=== PATIENT | female | born 1940 | race Caucasian/White ===

== ENCOUNTER 2020-09-18 10:36 | Outpatient (REF) | payer MEDICARE, SELFPAY ==
[2020-09-18 10:40] LABS: MANUAL DIFF FLAG NO
[2020-09-18 10:45] LABS: Basophils Absolute Auto 0.1 X10*3/uL (0.0-0.2); Basophils Percent Auto 0.8 % (0-2); Eosinophils Absolute Auto 0.3 X10*3/uL (0.0-0.4); Eosinophils Percent Auto 4.3 % (0-4); Hematocrit 40.5 % (37-47); Hemoglobin 13.1 g/dl (12.0-16.0); Imm Gran Abs Auto 0.03 X10*3/uL (0.00-0.03); Imm Gran Pct Auto 0.4 % (0.0-0.4); Lymphocytes Absolute Auto 3.1 X10*3/uL (1.2-4.9); Lymphocytes Percent Auto 40.8 % (20-40); Mean Corpuscular HGB Conc 32.3 g/dl (31.0-35.0); Mean Corpuscular Hemoglobin 30.8 pg (27.0-33.0); Mean Corpuscular Volume 95.3 fL (80-98); Mean Platelet Volume 11.4 fL (9.4-12.3); Monocytes Absolute Auto 0.7 X10*3/uL (0.1-1.2); Monocytes Percent Auto 9.8 % (2-11); Neutrophils Absolute Auto 3.3 X10*3/uL (2.0-8.3); Neutrophils Percent Auto 43.9 % (45-73); Platelet Count 206 X10*3/uL (160-400); Red Blood Count 4.25 X10*6/uL (4.20-5.50); Red Cell Distribution Width 11.9 % (11.0-16.0); White Blood Count 7.5 X10*3/uL (4.8-10.8)
[2020-09-18 10:51] LABS: Glucose Urine UA NEG (NEG); Leukocyte Esterase Urine TRACE (NEG); Nitrite Urine NEG (NEG); Specific Gravity - Urine 1.015 (1.005-1.025); Urine Blood TRACE (NEG); Urine Ketones NEG (NEG); Urine Protein NEG (NEG-TRACE)
[2020-09-18 10:54] LABS: Appearance Urine CLEAR; Color Urine YELLOW
[2020-09-18 11:23] LABS: Bacteria Urine TRACE /LPF; RBC Urine 0 /HPF (0); Squamous Epithelial Cell Urine 1+ /LPF
[2020-09-18 12:20] LABS: Alanine Aminotransferase 8 U/L (0-31); Alkaline Phosphatase 74 U/L (39-117); Anion Gap 15 (12-20); Aspartate Amino Transferase 19 U/L (5-31); Bilirubin Total 0.2 mg/dL (0.0-1.0); Blood Urea Nitrogen 41 mg/dL (9-16); Carbon Dioxide 22 mmol/L (22-29); Chloride 106 mmol/L (96-108); Cholesterol 246 mg/dL; Estimated Glomerular Filt Rate 35; Glucose Fasting 89 mg/dL (60-99); HDL Cholesterol 53 mg/dL; LDL Cholesterol Calculated 158 mg/dl; Potassium 4.8 mmol/L (3.3-5.1); Sodium 138 mmol/L (135-145); Total Protein 6.9 g/dL (6.5-8.0); Triglycerides 176 mg/dL
== END 2020-09-18 10:37 | disposition home or self-care (01) ==
LOC: HO.LNP 10:36
PROVIDERS: Visit Provider Internal Medicine
DX: Z00.00 Encounter for general adult medical examination without abnormal findings (principal); R79.9 Abnormal finding of blood chemistry, unspecified; R79.89 Other specified abnormal findings of blood chemistry; I10 Essential (primary) hypertension
CPT/HCPCS: 80053; 80061; 81001; 85025

== ENCOUNTER 2020-10-23 10:12 | Outpatient (REF) | payer MEDICARE, SELFPAY ==
[2020-10-23 10:50] LABS: Blood Urea Nitrogen 27 mg/dL (9-16); Estimated Glomerular Filt Rate 37
== END 2020-10-23 10:13 | disposition home or self-care (01) ==
LOC: HO.LNP 10:12
PROVIDERS: Visit Provider Internal Medicine
DX: R79.9 Abnormal finding of blood chemistry, unspecified (principal)
CPT/HCPCS: 82565; 84520

== ENCOUNTER 2021-02-25 10:25 | Outpatient (REF) | payer MEDICARE, SELFPAY ==
[2021-02-25 11:29] LABS: Blood Urea Nitrogen 33 mg/dL (9-16); Estimated Glomerular Filt Rate 34
== END 2021-02-25 10:26 | disposition home or self-care (01) ==
LOC: HO.LNP 10:25
PROVIDERS: Visit Provider Internal Medicine
DX: R79.89 Other specified abnormal findings of blood chemistry (principal)
CPT/HCPCS: 82565; 84520

== ENCOUNTER 2021-06-15 10:46 | Outpatient (REF) | payer MEDICARE, SELFPAY ==
[2021-06-15 11:18] LABS: Blood Urea Nitrogen 26 mg/dL (9-16); Estimated Glomerular Filt Rate 44
== END 2021-06-15 10:47 | disposition home or self-care (01) ==
LOC: HO.LNP 10:46
PROVIDERS: Visit Provider Internal Medicine
DX: R79.9 Abnormal finding of blood chemistry, unspecified (principal)
CPT/HCPCS: 82565; 84520

== ENCOUNTER 2021-09-24 11:08 | Outpatient (REF) | payer MEDICARE, SELFPAY ==
[2021-09-24 11:10] LABS: MANUAL DIFF FLAG NO
[2021-09-24 11:30] LABS: Basophils Absolute Auto 0.1 X10*3/uL (0.0-0.2); Basophils Percent Auto 0.7 % (0-2); Eosinophils Absolute Auto 0.2 X10*3/uL (0.0-0.4); Eosinophils Percent Auto 2.4 % (0-4); Hematocrit 37.7 % (37.0-47.0); Hemoglobin 12.3 g/dl (12.0-16.0); Imm Gran Abs Auto 0.02 X10*3/uL (0.00-0.03); Imm Gran Pct Auto 0.3 % (0.0-0.4); Lymphocytes Percent Auto 40.8 % (20-40); Mean Corpuscular HGB Conc 32.6 g/dl (31.0-35.0); Mean Corpuscular Hemoglobin 30.9 pg (27.0-33.0); Mean Corpuscular Volume 94.7 fL (80.0-98.0); Mean Platelet Volume 11.6 fL (9.4-12.3); Monocytes Absolute Auto 0.7 X10*3/uL (0.1-1.2); Monocytes Percent Auto 9.4 % (2-11); Neutrophils Absolute Auto 3.5 x10*3/uL (2.0-8.3); Neutrophils Percent Auto 46.4 % (45-73); Platelet Count 204 X10*3/uL (160-400); Red Blood Count 3.98 X10*6/uL (4.20-5.50); Red Cell Distribution Width 12.5 % (11.0-16.0); White Blood Count 7.5 X10*3/uL (4.8-10.8)
[2021-09-24 11:32] LABS: Appearance Urine CLEAR; Color Urine YELLOW; Glucose Urine UA NEG (NEG); Leukocyte Esterase Urine NEG (NEG); Nitrite Urine NEG (NEG); Urine Blood TRACE (NEG); Urine Ketones NEG (NEG); Urine Protein NEG (NEG-TRACE)
[2021-09-24 11:55] LABS: Bacteria Urine TRACE /LPF; Mucus Urine TRACE /LPF; Squamous Epithelial Cell Urine 2+ /LPF
[2021-09-24 11:58] LABS: Alanine Aminotransferase 12 U/L (0-31); Alkaline Phosphatase 56 U/L (39-117); Anion Gap 13 (12-20); Aspartate Amino Transferase 19 U/L (5-31); Bilirubin Total 0.4 mg/dL (0.0-1.0); Blood Urea Nitrogen 25 mg/dL (9-16); Calcium 9.3 mg/dL (8.4-10.2); Carbon Dioxide 23 mmol/L (22-29); Chloride 106 mmol/L (96-108); Cholesterol 247 mg/dL; Estimated Glomerular Filt Rate 40; Glucose Fasting 89 mg/dL (60-99); HDL Cholesterol 56 mg/dL; LDL Cholesterol Calculated 165 mg/dl; Potassium 4.4 mmol/L (3.3-5.1); Sodium 138 mmol/L (135-145); Total Protein 6.8 g/dL (6.5-8.0); Triglycerides 133 mg/dL
== END 2021-09-24 11:09 | disposition home or self-care (01) ==
LOC: HO.LNP 11:08
PROVIDERS: Visit Provider Internal Medicine
DX: Z00.00 Encounter for general adult medical examination without abnormal findings (principal)
CPT/HCPCS: 80053; 80061; 81001; 85025

== ENCOUNTER 2021-12-20 11:22 | Outpatient (REF) | payer MEDICARE, SELFPAY ==
[2021-12-20 11:44] LABS: Blood Urea Nitrogen 26 mg/dL (9-16); Estimated Glomerular Filt Rate 40
== END 2021-12-20 11:23 | disposition home or self-care (01) ==
LOC: HO.LNP 11:22
PROVIDERS: Visit Provider Internal Medicine
DX: R79.9 Abnormal finding of blood chemistry, unspecified (principal)
CPT/HCPCS: 82565; 84520

== ENCOUNTER 2022-11-14 10:41 | Outpatient (REF) | payer MEDICARE, SELFPAY ==
[2022-11-14 11:01] LABS: Appearance Urine Clear; Color Urine Yellow; Glucose Urine UA Negative (Negative); Leukocyte Esterase Urine Negative (Negative); Nitrite Urine Negative (Negative); PH 5.5 (5.0-9.0); Specific Gravity - Urine 1.015 (1.005-1.025); Urine Blood Negative (Negative); Urine Ketones Negative (Negative); Urine Protein Negative (Neg-Trace)
[2022-11-14 11:06] LABS: Bacteria Urine None Seen (None Seen); Hyaline Casts Urine 0-2 /LPF (0-2); RBC Urine 0-2 /HPF (0-2); Squamous Epithelial Cell Urine 0-2 /HPF (0-2); WBC Urine 0-5 /HPF (0-5)
[2022-11-14 11:15] LABS: Alanine Aminotransferase 19 U/L (0-31); Albumin Level 3.9 g/dL (3.5-5.0); Alkaline Phosphatase 58 U/L (39-117); Anion Gap 17 (12-20); Aspartate Amino Transferase 17 U/L (5-31); Bilirubin Total 0.4 mg/dL (0.0-1.0); Blood Urea Nitrogen 51 mg/dL (9-16); Calcium 9.3 mg/dL (8.4-10.2); Carbon Dioxide 21 mmol/L (22-29); Chloride 104 mmol/L (96-108); Cholesterol 230 mg/dL; Estimated Glomerular Filt Rate 37; Glucose Fasting 83 mg/dL (60-99); HDL Cholesterol 60 mg/dL; LDL Cholesterol Calculated 138 mg/dl; Potassium 4.9 mmol/L (3.3-5.1); Sodium 137 mmol/L (135-145); Total Protein 6.8 g/dL (6.5-8.0); Triglycerides 160 mg/dL
[2022-11-14 14:42] LABS: Basophils Absolute Auto 0.1 X10*3/uL (0.0-0.2); Basophils Percent Auto 0.3 % (0-2); Eosinophils Absolute Auto 0.2 X10*3/uL (0.0-0.4); Imm Gran Abs Auto 0.43 X10*3/uL (0.00-0.03); Imm Gran Pct Auto 2.6 % (0.0-0.4); Lymphocytes Absolute Auto 3.2 X10*3/uL (1.2-4.9); Lymphocytes Percent Auto 19.4 % (20-40); MANUAL DIFF FLAG SCAN; Mean Corpuscular HGB Conc 32.5 g/dl (31.0-35.0); Mean Corpuscular Volume 95.5 fL (80.0-98.0); Mean Platelet Volume 10.6 fL (9.4-12.3); Monocytes Absolute Auto 1.6 X10*3/uL (0.1-1.2); Neutrophils Absolute Auto 10.9 x10*3/uL (2.0-8.3); Neutrophils Percent Auto 66.7 % (45-73); Platelet Count 242 X10*3/uL (160-400); Red Blood Count 4.19 X10*6/uL (4.20-5.50); Red Cell Distribution Width 12.8 % (11.0-16.0); SCAN SMEAR FLAG 1; White Blood Count 16.4 X10*3/uL (4.8-10.8)
[2022-11-14 20:24] LABS: SLIDE REVIEW VERIFIED
== END 2022-11-14 10:42 | disposition home or self-care (01) ==
LOC: HO.LNP 10:41
PROVIDERS: Visit Provider Internal Medicine
DX: Z00.00 Encounter for general adult medical examination without abnormal findings (principal); I10 Essential (primary) hypertension; R79.9 Abnormal finding of blood chemistry, unspecified
CPT/HCPCS: 80053; 80061; 81001; 85025

== ENCOUNTER 2022-11-18 16:59 | Outpatient (REF) | payer MEDICARE, SELFPAY ==
--- NOTE | ~2022-11-18 | MR_ITS ---
MR LUMBAR SPINE WITHOUT CONTRAST CLINICAL INFORMATION: Right-sided sciatica. COMPARISON: None available. TECHNIQUE: MRI of the lumbar spine was obtained using routine sequences without contrast. FINDINGS: There are 5 nonrib-bearing lumbar-type vertebral bodies. Leftward convex lumbar scoliosis. There is grade 1 retrolisthesis of L1 on L2 and L2 on L3. There is grade 1 anterolisthesis of L4 on L5 and L5 on S1. Small intraosseous hemangiomas within the T11, L1, and L2 vertebral bodies. There are no acute fractures. The vertebral body heights are maintained. Conus terminates at the L1-L2 level. There are no significant extraspinal soft tissue findings. L1-L2: There is grade 1 retrolisthesis. Right paracentral/right lateral disc osteophyte protrusion results in mass effect on the traversing right L2 nerve root within the right subarticular zone and moderate right-sided foraminal stenosis. No central canal stenosis. Mild left foraminal encroachment. L2-L3: Grade 1 retrolisthesis. Right paracentral/right lateral disc osteophyte protrusion compresses the traversing right L3 nerve root within the right subarticular zone and along with advanced facet arthropathy result in moderate to severe right-sided foraminal stenosis with mass effect on the exiting right L2 nerve root. L3-L4: There is a diffuse annular disc bulge that is in part disc osteophyte with a superimposed right lateral disc osteophyte protrusion that along with advanced facet arthropathy result in severe right-sided foraminal stenosis with compression of the exiting right L3 nerve root. L4-L5: There is grade 1 degenerative anterolisthesis. Severe bilateral facet arthropathy and ligamentum flavum thickening. There is no central canal stenosis. Right lateral disc osteophyte and facet arthropathy result in moderate to severe right foraminal stenosis with compression of the exiting right L4 nerve root. Mild left foraminal encroachment. L5-S1: Grade 1 degenerative anterolisthesis. Severe bilateral hypertrophic facet arthropathy and ligamentum flavum thickening. Findings in concert result in mild narrowing of the central canal and mild bilateral foraminal encroachment. MR/MR lumbar spine wo con IMPRESSION: - Leftward convex lumbar scoliosis superimposed on multilevel degenerative disc disease and hypertrophic facet arthropathy: - At L1-L2, a right paracentral/right lateral disc osteophyte protrusion results in mass effect on the traversing right L2 nerve root within the right subarticular zone and moderate right-sided foraminal stenosis. - At L2-L3, a right paracentral/right lateral disc osteophyte protrusion compresses the traversing right L3 nerve root within the right subarticular zone and along with advanced facet arthropathy result in moderate to severe right-sided foraminal stenosis with mass effect on the exiting right L2 nerve root. - At L3-L4, a right lateral disc osteophyte protrusion along with advanced facet arthropathy result in severe right-sided foraminal stenosis with compression of the exiting right L3 nerve root. - At L4-L5, there is grade 1 degenerative anterolisthesis in the setting of advanced bilateral hypertrophic facet arthropathy contributing to moderate to severe right-sided foraminal stenosis with compression of the exiting right L4 nerve root. - At L5-S1, there is grade 1 degenerative anterolisthesis in the setting of advanced bilateral hypertrophic facet arthropathy.
== END 2022-11-18 17:00 | disposition home or self-care (01) ==
LOC: HO.MRI 16:59
PROVIDERS: PCP Internal Medicine; Visit Provider Internal Medicine
DX: M54.31 Sciatica, right side (principal)
CPT/HCPCS: 72148

== ENCOUNTER 2022-11-21 15:29 | Outpatient (REF) | payer MEDICARE, SELFPAY ==
[2022-11-21 15:32] LABS: MANUAL DIFF FLAG NO
[2022-11-21 15:36] LABS: Basophils Percent Auto 0.4 % (0-2); Eosinophils Absolute Auto 0.1 X10*3/uL (0.0-0.4); Eosinophils Percent Auto 0.7 % (0-4); Hematocrit 34.2 % (37.0-47.0); Hemoglobin 11.4 g/dl (12.0-16.0); Imm Gran Abs Auto 0.03 X10*3/uL (0.00-0.03); Imm Gran Pct Auto 0.4 % (0.0-0.4); Lymphocytes Absolute Auto 2.1 X10*3/uL (1.2-4.9); Lymphocytes Percent Auto 24.6 % (20-40); Mean Corpuscular HGB Conc 33.3 g/dl (31.0-35.0); Mean Corpuscular Hemoglobin 31.1 pg (27.0-33.0); Mean Corpuscular Volume 93.4 fL (80.0-98.0); Mean Platelet Volume 10.7 fL (9.4-12.3); Monocytes Absolute Auto 0.7 X10*3/uL (0.1-1.2); Monocytes Percent Auto 8.2 % (2-11); Neutrophils Absolute Auto 5.6 x10*3/uL (2.0-8.3); Neutrophils Percent Auto 65.7 % (45-73); Platelet Count 234 X10*3/uL (160-400); Red Blood Count 3.66 X10*6/uL (4.20-5.50); Red Cell Distribution Width 12.7 % (11.0-16.0); White Blood Count 8.5 X10*3/uL (4.8-10.8)
== END 2022-11-21 15:30 | disposition home or self-care (01) ==
LOC: HO.LNP 15:29
PROVIDERS: Visit Provider Internal Medicine
DX: R79.9 Abnormal finding of blood chemistry, unspecified (principal)
CPT/HCPCS: 85025

== ENCOUNTER 2022-12-15 11:59 | Outpatient (REF) | payer MEDICARE, SELFPAY ==
[2022-12-15 12:03] LABS: MANUAL DIFF FLAG NO
[2022-12-15 12:37] LABS: Basophils Absolute Auto 0.1 X10*3/uL (0.0-0.2); Basophils Percent Auto 0.8 % (0-2); Eosinophils Absolute Auto 0.1 X10*3/uL (0.0-0.4); Eosinophils Percent Auto 1.8 % (0-4); Hematocrit 37.1 % (37.0-47.0); Imm Gran Abs Auto 0.04 X10*3/uL (0.00-0.03); Imm Gran Pct Auto 0.5 % (0.0-0.4); Lymphocytes Absolute Auto 2.5 X10*3/uL (1.2-4.9); Lymphocytes Percent Auto 31.6 % (20-40); Mean Corpuscular HGB Conc 32.3 g/dl (31.0-35.0); Mean Corpuscular Hemoglobin 31.6 pg (27.0-33.0); Mean Corpuscular Volume 97.6 fL (80.0-98.0); Mean Platelet Volume 11.6 fL (9.4-12.3); Monocytes Percent Auto 12.5 % (2-11); Neutrophils Absolute Auto 4.2 x10*3/uL (2.0-8.3); Neutrophils Percent Auto 52.8 % (45-73); Platelet Count 208 X10*3/uL (160-400); Red Cell Distribution Width 13.8 % (11.0-16.0)
[2022-12-15 12:38] LABS: Blood Urea Nitrogen 19 mg/dL (9-16); Estimated Glomerular Filt Rate 53
== END 2022-12-15 12:00 | disposition home or self-care (01) ==
LOC: HO.LNP 11:59
PROVIDERS: Visit Provider Internal Medicine
DX: R79.9 Abnormal finding of blood chemistry, unspecified (principal); D72.829 Elevated white blood cell count, unspecified
CPT/HCPCS: 82565; 84520; 85025

== ENCOUNTER 2023-06-30 12:04 | Outpatient (REF) | payer MEDICARE, SELFPAY ==
[2023-06-30 13:02] LABS: Blood Urea Nitrogen 33 mg/dL (9-16); Estimated Glomerular Filt Rate 42
== END 2023-06-30 12:05 | disposition home or self-care (01) ==
LOC: HO.LNP 12:04
PROVIDERS: Visit Provider Internal Medicine
DX: I10 Essential (primary) hypertension (principal)
CPT/HCPCS: 82565; 84520

== ENCOUNTER 2023-08-11 11:23 | Outpatient (REF) | payer MEDICARE, SELFPAY ==
[2023-08-11 13:02] LABS: Blood Urea Nitrogen 19 mg/dL (9-16); Estimated Glomerular Filt Rate 53
== END 2023-08-11 11:24 | disposition home or self-care (01) ==
LOC: HO.LNP 11:23
PROVIDERS: Visit Provider Internal Medicine
DX: R79.9 Abnormal finding of blood chemistry, unspecified (principal)
CPT/HCPCS: 82565; 84520

== ENCOUNTER 2023-11-16 10:52 | Outpatient (REF) | payer MEDICARE, SELFPAY ==
[2023-11-16 10:56] LABS: MANUAL DIFF FLAG NO
[2023-11-16 11:17] LABS: Appearance Urine Clear; Color Urine Yellow; Glucose Urine UA Negative (Negative); Leukocyte Esterase Urine Negative (Negative); Nitrite Urine Negative (Negative); Urine Blood Negative (Negative); Urine Ketones Negative (Negative); Urine Protein Negative (Neg-Trace)
[2023-11-16 11:20] LABS: Basophils Absolute Auto 0.1 X10*3/uL (0.0-0.2); Eosinophils Absolute Auto 0.2 X10*3/uL (0.0-0.4); Eosinophils Percent Auto 3.1 % (0-4); Hematocrit 42.5 % (37.0-47.0); Hemoglobin 14.1 g/dl (12.0-16.0); Imm Gran Abs Auto 0.03 X10*3/uL (0.00-0.03); Imm Gran Pct Auto 0.5 % (0.0-0.4); Lymphocytes Percent Auto 32.1 % (20-40); Mean Corpuscular HGB Conc 33.2 g/dl (31.0-35.0); Mean Corpuscular Hemoglobin 31.3 pg (27.0-33.0); Mean Corpuscular Volume 94.4 fL (80.0-98.0); Mean Platelet Volume 10.9 fL (9.4-12.3); Monocytes Absolute Auto 0.6 X10*3/uL (0.1-1.2); Neutrophils Absolute Auto 3.2 x10*3/uL (2.0-8.3); Neutrophils Percent Auto 53.3 % (45-73); Platelet Count 225 X10*3/uL (160-400); Red Cell Distribution Width 12.5 % (11.0-16.0); White Blood Count 6.1 X10*3/uL (4.8-10.8)
[2023-11-16 11:22] LABS: Bacteria Urine None Seen (None Seen); Hyaline Casts Urine 0-2 /LPF (0-2); RBC Urine 0-2 /HPF (0-2); Squamous Epithelial Cell Urine 0-2 /HPF (0-2); WBC Urine 0-5 /HPF (0-5)
[2023-11-16 11:33] LABS: Alanine Aminotransferase 12 U/L (0-31); Albumin Level 4.2 g/dL (3.5-5.0); Alkaline Phosphatase 75 U/L (39-117); Anion Gap 13 (12-20); Aspartate Amino Transferase 25 U/L (5-31); Bilirubin Total 0.4 mg/dL (0.0-1.0); Blood Urea Nitrogen 18 mg/dL (9-16); Calcium 9.7 mg/dL (8.4-10.2); Carbon Dioxide 24 mmol/L (22-29); Chloride 108 mmol/L (96-108); Cholesterol 238 mg/dL (<200); Estimated Glomerular Filt Rate 60; Glucose Fasting 84 mg/dL (60-99); HDL Cholesterol 72 mg/dL (>40); LDL Cholesterol Calculated 148 mg/dL (<100); Potassium 4.4 mmol/L (3.3-5.1); Sodium 141 mmol/L (135-145); Total Protein 7.1 g/dL (6.5-8.0); Triglycerides 94 mg/dL (<150)
== END 2023-11-16 10:53 | disposition home or self-care (01) ==
LOC: HO.LNP 10:52
PROVIDERS: Visit Provider Internal Medicine
DX: Z00.00 Encounter for general adult medical examination without abnormal findings (principal); I10 Essential (primary) hypertension; R79.9 Abnormal finding of blood chemistry, unspecified; D72.829 Elevated white blood cell count, unspecified
CPT/HCPCS: 80053; 80061; 81001; 85025

== ENCOUNTER 2024-05-05 08:57 | Inpatient (IN) | payer MEDICARE, SELFPAY ==
[2024-05-05] VITALS (10 sets, daily range): BP systolic 137–160; BP diastolic 63–101; PULSE 71–99; RESP 15–18; TEMP 35.9–36.8; O2SAT 93–100; BMI 18.7
--- NOTE | ~2024-05-05 | CT_ITS ---
CLINICAL HISTORY: N V, bowel obstruction CT abdomen without IV contrast. Comparison: Current KUB. No prior imaging. Findings: Marked distention of the stomach and markedly dilated small bowel with right inguinal hernia containing a small bowel loop and ascites concerning for site of obstruction . Severe narrowing of the herniated segment at the mouth with the more distal small bowel decompressed. Ingested tablets in the distal stomach. Mild ascites concerning for peritonitis including ascites in the hernia sac. Distal most small bowel loops decompressed. Colon nondilated. Limited assessment of the appendix. No clearly abnormal appendix. Diverticulosis without appreciable diverticulitis. No acute process evident in the lung bases. Heart size normal. Equivocal small hiatal hernia versus reflux. Liver, gallbladder, biliary tree, pancreas, spleen, adrenals and kidneys intact. Calcified nonaneurysmal aorta. No pathologic appearing adenopathy. Decompressed urinary bladder. Pelvic viscera intact. Diffuse degenerative changes lumbar spine. No acute or aggressive appearing bone lesion. Soft tissues intact. Impression: High-grade small bowel obstruction appearing related to right inguinal hernia as detailed. Mild ascites concerning for peritonitis. No apparent free air. No pneumatosis. Other findings as noted. Surgical consultation advised. This document has been electronically signed by: Fran Link MD on 05/05/2024 11:52:48
--- NOTE | ~2024-05-05 | XR_ITS ---
CLINICAL HISTORY: constipation Abdomen one view Findings: Stacked dilated small bowel loops in the low abdomen to pelvis concerning for small bowel obstruction. Paucity of bowel gas in the upper abdomen. Perhaps minimal colonic gas. Lung bases clear. Advanced lumbar spondylosis with levoscoliosis. Calcification right hemiabdomen suggesting renal stone although gallstone not excluded. Impression: Bowel gas pattern suspicious for small bowel obstruction. This document has been electronically signed by: Fran Link MD on 05/05/2024 10:34:29
[2024-05-05 09:52] LABS: Hemoglobin 15.4 g/dl (12.0-16.0); Mean Corpuscular HGB Conc 33.5 g/dl (31.0-35.0); Mean Corpuscular Hemoglobin 31.2 pg (27.0-33.0); Mean Corpuscular Volume 93.3 fL (80.0-98.0); Platelet Count 260 X10*3/uL (160-400); Red Blood Count 4.93 X10*6/uL (4.20-5.50); Red Cell Distribution Width 12.2 % (11.0-16.0)
[2024-05-05 09:55] LABS: White Blood Count 23.2 X10*3/uL (4.8-10.8)
[2024-05-05 10:07] LABS: Alanine Aminotransferase 14 U/L (0-31); Albumin Level 4.6 g/dL (3.5-5.0); Alkaline Phosphatase 73 U/L (39-117); Anion Gap 19 (12-20); Aspartate Amino Transferase 32 U/L (5-31); Bilirubin Total 0.5 mg/dL (0.0-1.0); Blood Urea Nitrogen 27 mg/dL (9-16); Calcium 10.1 mg/dL (8.4-10.2); Carbon Dioxide 22 mmol/L (22-29); Chloride 102 mmol/L (96-108); Creatinine Clr Calc Pharmacy 23.8; Estimated Glomerular Filt Rate 40; Glucose Random 164 mg/dL (60-115); Sodium 139 mmol/L (135-145); Total Protein 8.6 g/dL (6.5-8.0)
[2024-05-05 10:12] LABS: SLIDE REVIEW MANUAL DIFF
[2024-05-05 10:15] LABS: Band Neutrophils Percent 2 % (3-5); Basophils Abs Manual 0.2 X10*3/uL (0.0-0.2); Basophils Percent Manual 1 % (0-2); Lymphocytes Absolute Manual 1.2 X10*3/uL (1.2-4.9); Lymphocytes Percent Manual 5 % (20-40); Neutrophils Absolute Manual 21.8 X10*3/uL (2.0-8.3); Neutrophils Percent Manual 92 % (45-73)
[2024-05-05 10:16] LABS: Hypersegmented Neutrophils PRESENT; Platelet Estimate NORMAL (NORMAL); RBC Morphology NORMAL
[2024-05-05 10:17] LABS: Platelet Morphology Comment NORM
[2024-05-05 10:30] LABS: Influenza A PCR NEGATIVE (Negative); Influenza B PCR NEGATIVE (Negative); Resp Syncy Virus RNA Qual PCR NEGATIVE (Negative); SARS COV2 PCR INHOUSE NEGATIVE (Negative)
--- NOTE | 2024-05-05 12:19 | ED_ITS ---
HPI - Abdominal Pain General Chief Complaint: Abdominal Pain Stated Complaint: Weakness/Abd pain Time Seen by Provider: 05/05/24 12:03 Source: patient Mode of arrival: ambulatory Limitations: no limitations History of Present Illness ED Provider: Rosie Dave PA-C HPI narrative: 83-year-old female with history of dementia, hypertension, history of breast cancer status post resection and radiation last year, history of 3 sections in the past who presents to the ER for evaluation of constipation for the last 4 days. She states she has been using [id number] Dulcolax and did an enema last night with only very small amount of hard stool that was passed. This morning she developed nausea and vomiting x1. She has felt weak and ?off for the last several days. She reports some abdominal discomfort but no exquisite abdominal pain. Pain is worse with walking. She denies any fever or chills. No urinary symptoms. No known sick contacts. No chest pain or shortness of breath. MD elicited complaint: abdominal pain and other (Constipation) Pertinent past history: constipation Onset (ago): day(s) (4) Pain Consistency: intermittent Location: diffuse Severity: moderate Quality: aching Radiation: none Migration to: no migration Exacerbating factors: eating Relieving factors: nothing Associated symptoms: nausea, vomiting and constipation Related Data Home Medications ?Medication ?Instructions ?Recorded ?Confirmed magnesium oxide 400 mg (241.3 mg 400 mg PO DAILY 05/05/24 05/05/24 magnesium) tablet metoprolol succinate 50 mg 50 mg PO DAILY 05/05/24 05/05/24 tablet,extended release 24 hr Allergies Allergy/AdvReac Type Severity Reaction Status Date / Time No Known Allergies Allergy Verified 05/05/24 09:11 [No Known Allergies*] Review of Systems Review of Systems Yes all other systems are reviewed and are negative [facility] Social History Social History Smoked in Last 30 Days: No Use of substances other than those prescribed or required for medical reasons: No Advance Directives: No Advance Directives Information Provided: Yes Do you have a plan to hurt others: No Plan Physical Exam ED Vital Signs: Vital Signs - 24 hr 05/05/24 09:10 05/05/24 15:31 Temperature 98.3 F Pulse Rate 99 Respiratory Rate 18 15 Blood Pressure 151/101 H Pulse Oximetry 98 Oxygen Delivery Method Room Air BMI result Body Mass Index 18.7 Appearance: Alert elderly female sitting up in bed. Oriented X3. No acute distress. Head: normocephalic, atraumatic. Eyes: Pupils equal, round and reactive to light. ENT: Pharynx normal. No tonsillar swelling or exudate. Neck: Normal inspection. Neck supple. CVS: Normal heart rate and rhythm. Pulses normal. Respiratory: No respiratory distress. Breath sounds normal. Abdomen: Softly distended with moderate diffuse tenderness throughout, decreased bowel sounds, hypoactive bowel sounds in LLQ only Skin: Skin warm and dry. Normal skin color. Normal skin turgor. No rashes. Extremities: No lower extremity edema. No joint swelling. Neuro/psych: Oriented X 3. No motor deficit. No sensory deficit. CN II-XII intact. Slow but steady gait. Normal speech and cognition. Course Reevaluation(s) Reevaluation #1: Patient given low-dose morphine for abdominal discomfort. Spoke with Dr. Bowers who plans to take patient to the OR this afternoon. Patient and family updated on plan of care. Time: 15:38 Medical Decision Making Medical Decision Making [facility] Narrative: 83 y/o female with history of dementia, HTN, breast cancer s/p resection and radiation who presents to the ER with her daughter for complaints of constipation x4 days w/ N/V x1 and abdominal pain. Labs significant for WKC 23.2. VSS, no fevers or tachycardia. KUB done from triage showing concerning findings of SBO so CT scan was ordered Radiology called with critical result of CT scan indicating bowel obstruction w/ inguinal hernia on the right side, likely ascites 2/2 peritonitis. no free air. Patient brought into treatment room and examined. Not peritonitic. Dr. Gonzales made aware of patient and CT scan findings. IVF, Zosyn ordered. Dr. Ibrahim recommending NGT for decompression. will need surgical intervention. Differential Diagnosis Differential Diagnoses: The differential diagnosis associated with the presentation includes Constipation, obstipation, bowel obstruction, colitis, stool ball, Stercoral colitis Admission/Observation Consideration of admission/observation: Escalation of care including admission/observation considered Consult Healthcare Provider Management of the patient was discussed with: Data Operations Director Dr. Bowers Lab Data [facility] Lab Attestation statement: I reviewed the patient's lab results. Significant leukocytosis with a white blood cell count of 23.2. BUN slightly elevated, no anion gap, mild hyperglycemia 05/05/24 09:42 05/05/24 09:42 Labs: Lab Results 05/05/24 05/05/24 Range/Units 09:42 12:35 WBC 23.2 H (4.8-10.8) X10*3/uL RBC 4.93 (4.20-5.50) X10*6/uL Hgb 15.4 (12.0-16.0) g/dl Hct 46.0 (37.0-47.0) % MCV 93.3 (80.0-98.0) fL MCH 31.2 (27.0-33.0) pg MCHC 33.5 (31.0-35.0) g/dl RDW 12.2 (11.0-16.0) % Plt Count 260 (160-400) X10*3/uL MPV 10.0 (9.4-12.3) fL Immature Gran % (Auto) Cancelled Neut % (Auto) Cancelled Lymph % (Auto) Cancelled [place] % (Auto) Cancelled Eos % (Auto) Cancelled Baso % (Auto) Cancelled Lymph # (Auto) Cancelled [place] # (Auto) Cancelled Eos # (Auto) Cancelled Baso # (Auto) Cancelled Abs Immat Gran (auto) Cancelled Absolute Neuts (auto) Cancelled Absolute Nucleated RBC 0.000 (0.0-0.012) X10*3/uL Nucleated RBC % (auto) 0.0 (0.0-0.2) /100WBC Neutrophils % (Manual) 92 H (45-73) % Band Neutrophils % 2 L (3-5) % Lymphocytes % (Manual) 5 L (20-40) % Basophils % (Manual) 1 (0-2) % Abs Neuts (Manual) 21.8 H (2.0-8.3) X10*3/uL Lymphocytes # (Manual) 1.2 (1.2-4.9) X10*3/uL Basophils # (Manual) 0.2 (0.0-0.2) X10*3/uL Hypersegmented Neuts PRESENT Platelet Estimate NORMAL (NORMAL) Plt Morphology Comment NORM RBC Morphology NORMAL Smear Tech's Comments MANUAL DIFF Sodium 139 (135-145) mmol/L Potassium 4.0 (3.3-5.1) mmol/L Chloride 102 (96-108) mmol/L Carbon Dioxide 22 (22-29) mmol/L Anion Gap 19 (12-20) BUN 27 H (9-16) mg/dL Creatinine 1.29 (0.5-1.4) mg/dL Estim Creat Clear Calc 23.8 Estimated GFR 40 Random Glucose 164 H (60-115) mg/dL Lactic Acid 2.6 H* (0.5-2.0) mmol/L Calcium 10.1 (8.4-10.2) mg/dL Total Bilirubin 0.5 (0.0-1.0) mg/dL AST 32 H (5-31) U/L ALT 14 (0-31) U/L Alkaline Phosphatase 73 (39-117) U/L Total Protein 8.6 H (6.5-8.0) g/dL Albumin 4.6 (3.5-5.0) g/dL Influenza Type A (PCR) NEGATIVE (Negative) Influenza Type B (PCR) NEGATIVE (Negative) RSV RNA Qual (PCR) NEGATIVE (Negative) SARS-CoV-2 RNA (RT-PCR) NEGATIVE (Negative) Independent Interpretation I performed an independent interpretation of an: EKG, Plain X-Ray and CT Scan Interpretation: Multiple dilated loops of bowel consistent with obstruction EKG w/ normal sinus rhythm, hr 80 bpm, normal [place] interval, normal QTc, no ST segment elevations or depressions Radiology Impression Discussion of test interpretation with radiology: I discussed test interpretation with the radiologist and I have reviewed the radiologist's reading. Radiologist Impression: CLINICAL HISTORY: N V, bowel obstruction CT abdomen without IV contrast. Comparison: Current KUB. No prior imaging. Findings: Marked distention of the stomach and markedly dilated small bowel with right inguinal hernia containing a small bowel loop and ascites concerning for site of obstruction . Severe narrowing of the herniated segment at the mouth with the more distal small bowel decompressed. Ingested tablets in the distal stomach. Mild ascites concerning for peritonitis including ascites in the hernia sac. Distal most small bowel loops decompressed. Colon nondilated. Limited assessment of the appendix. No clearly abnormal appendix. Diverticulosis without appreciable diverticulitis. No acute process evident in the lung bases. Heart size normal. Equivocal small hiatal hernia versus reflux. Liver, gallbladder, biliary tree, pancreas, spleen, adrenals and kidneys intact. Calcified nonaneurysmal aorta. No pathologic appearing adenopathy. Decompressed urinary bladder. Pelvic viscera intact. Diffuse degenerative changes lumbar spine. No acute or aggressive appearing bone lesion. Soft tissues intact. Impression: High-grade small bowel obstruction appearing related to right inguinal hernia as detailed. Mild ascites concerning for peritonitis. No apparent free air. No pneumatosis. Other findings as noted. Surgical consultation advised. Independent Historian Clinical information obtained from an independent historian. History obtained from or confirmed by: Other (adult daughter at the bedside) External Record Review External record reviewed: Office record, Outpatient record and Prior outpatient labs Prescription Management I considered prescription management with: Pain Medication and Antibiotic Chronic Conditions Patient?s care impacted by: Hypertension Medications Administered Discontinued Medications Generic Name Dose Route Start Last Admin Trade Name Freq PRN Reason Stop Dose Admin Piperacillin Sod/Tazobactam 50 mls @ 100 mls/hr 05/05/24 12:03 05/05/24 13:20 Sod 3.375 gm/ Sodium Chloride IV 05/05/24 12:32 Infused ONCE ONE Infusion Lactated Ringer's 1,000 mls @ 999 mls/hr 05/05/24 12:30 05/05/24 14:02 Lr IV 05/05/24 13:30 Infused .Q1H1M ASHKAN Infusion Morphine Sulfate 2 mg 05/05/24 15:27 05/05/24 15:31 Morphine Sulfate 2 Mg/Ml Cartridge IVPUSH 05/05/24 15:28 2 mg ONCE ONE Administration Protocol Critical Care Time Critical Care Time Critical Care Time: Yes Total Critical Care Time: 36 Attestation: I have personally provided critical care time exclusive of time spent on separately billable procedures. Time includes review of lab data, radiology results, discussion with consultants, and monitoring for potential decompensation. Intervention performed as documented. Discharge Plan Discharge Clinical Impression: Small bowel obstruction Patient Disposition: Admitted As Inpatient Print Language: Mongolian
[2024-05-05] MEDS: Lactated Ringers 1,000 ML 999 ML IV (12:32)
--- NOTE | 2024-05-05 12:38 | ECG_ITS ---
Test Reason : WEAKNESS Blood Pressure : */* mmHG Vent. Rate : 80 BPM Atrial Rate : 80 BPM P-R Int : 160 ms QRS Dur : 84 ms QT Int : 366 ms P-R-T Axes : 24 79 61 degrees QTcB Int : 422 ms Normal sinus rhythm Normal ECG No previous ECGs available Referred By: Tootie Dave Electronically Signed By: DAREK WARD
[2024-05-05] MEDS: Piperacillin Sodium/Tazobactam 3.375 GM in 0.9 % Sodium Chloride 50 ML IV (12:48)
[2024-05-05 13:28] LABS: Lactic Acid 2.6 mmol/L (0.5-2.0)
[2024-05-05 14:45] LABS: Reflex Lactate? Lactic Acid Added
--- NOTE | 2024-05-05 15:26 | PHA.MEDREC ---
Pharmacy Consult ? Medication Reconciliation Pharmacy has completed the medication reconciliation. Spoke to pt to confirm meds.
[2024-05-05] MEDS: Morphine Sulfate 2 MG/ML CARTRIDGE IVPUSH (15:31)
[2024-05-05 15:47] LABS: Appearance Urine Cloudy; Color Urine Yellow; Glucose Urine UA Negative (Negative); Leukocyte Esterase Urine Negative (Negative); Nitrite Urine Negative (Negative); PH 5.5 (5.0-9.0); Specific Gravity - Urine >= 1.030 (1.005-1.025); UMIC TRIGGER UACC YES; Urine Blood Negative (Negative); Urine Ketones Trace mg/dL (Negative); Urine Protein 100 (2+) mg/dL (Neg-Trace)
[2024-05-05 15:57] LABS: Bacteria Urine None Seen (None Seen); RBC Urine 0-2 /HPF (0-2); WBC Urine 0-5 /HPF (0-5)
[2024-05-05 16:10] LABS: ~Lactic Acid-LAB USE ONLY 2.6 mmol/L (0.5-2.0)
--- NOTE | 2024-05-05 16:11 | P.CONAN_ITS ---
HPI - Anesthesia Eval Consult details Narrative: Right Incarcerated femoral hernia PMFSH Active Problems Active Problems: All Active Problems Small bowel obstruction (Acute) Past Medical History Medical History (Updated 05/05/24 @ 16:12 by Wilfrid Mills MD) Dementia Hypertension Family History Family history of problems with anesthesia: No Surgical History History of Problems with Anesthesia: No Social History Social History Smoked in Last 30 Days: No Use of substances other than those prescribed or required for medical reasons: No Advance Directives: No Advance Directives Information Provided: Yes Do you have a plan to hurt others: No Plan Meds Allergies Allergy/AdvReac Type Severity Reaction Status Date / Time No Known Allergies Allergy Verified 05/05/24 09:11 [No Known Allergies*] Active Medications: Current Medications Cefazolin Sodium 2 gm/ Sodium (Chloride) 100 mls @ 200 mls/hr IV PREOP ONE Stop: 05/05/24 16:29 Home Medications ?Medication ?Instructions ?Recorded ?Confirmed ?Last Taken ?Type magnesium oxide 400 mg (241.3 mg 400 mg PO DAILY 05/05/24 05/05/24 05/05/24 History magnesium) tablet metoprolol succinate 50 mg 50 mg PO DAILY 05/05/24 05/05/24 05/05/24 History tablet,extended release 24 hr Exam Height,Weight and Vital Signs: Height 5 ft 1 in Weight 44.9 kg Last Vital Signs Temp 98.3 F 05/05/24 09:10 Pulse 99 05/05/24 09:10 Resp 15 05/05/24 15:31 BP 151/101 H 05/05/24 09:10 Pulse Ox 98 05/05/24 09:10 O2 Del Method Room Air 05/05/24 09:10 Pertinent Lab Results Pertinent Lab Results: Laboratory Tests 05/05/24 05/05/24 05/05/24 09:42 12:35 15:34 WBC 23.2 H RBC 4.93 Hgb 15.4 Hct 46.0 MCV 93.3 MCH 31.2 MCHC 33.5 RDW 12.2 Plt Count 260 MPV 10.0 Immature Gran % (Auto) Cancelled Neut % (Auto) Cancelled Lymph % (Auto) Cancelled [place] % (Auto) Cancelled Eos % (Auto) Cancelled Baso % (Auto) Cancelled Lymph # (Auto) Cancelled [place] # (Auto) Cancelled Eos # (Auto) Cancelled Baso # (Auto) Cancelled Abs Immat Gran (auto) Cancelled Absolute Neuts (auto) Cancelled Absolute Nucleated RBC 0.000 Nucleated RBC % (auto) 0.0 Neutrophils % (Manual) 92 H Band Neutrophils % 2 L Lymphocytes % (Manual) 5 L Basophils % (Manual) 1 Abs Neuts (Manual) 21.8 H Lymphocytes # (Manual) 1.2 Basophils # (Manual) 0.2 Hypersegmented Neuts PRESENT Platelet Estimate NORMAL Plt Morphology Comment NORM RBC Morphology NORMAL Smear Tech's Comments MANUAL DIFF Sodium 139 Potassium 4.0 Chloride 102 Carbon Dioxide 22 Anion Gap 19 BUN 27 H Creatinine 1.29 Estim Creat Clear Calc 23.8 Estimated GFR 40 Random Glucose 164 H Lactic Acid 2.6 H* Lactic Acid F/U @ 2Hr Calcium 10.1 Total Bilirubin 0.5 AST 32 H ALT 14 Alkaline Phosphatase 73 Total Protein 8.6 H Albumin 4.6 Urine Color Yellow Urine Appearance Cloudy Urine pH 5.5 Ur Specific [place] >= 1.030 H Urine Protein 100 (2+) H Urine Glucose (UA) Negative Urine Ketones Trace Urine Blood Negative Urine Nitrite Negative Ur Leukocyte Esterase Negative Urine RBC 0-2 Urine WBC 0-5 Ur Squamous Epith Cells 3-5 Urine Bacteria None Seen Hyaline Casts 6-10 Influenza Type A (PCR) NEGATIVE Influenza Type B (PCR) NEGATIVE RSV RNA Qual (PCR) NEGATIVE SARS-CoV-2 RNA (RT-PCR) NEGATIVE 05/05/24 15:50 WBC RBC Hgb Hct MCV MCH MCHC RDW Plt Count MPV Immature Gran % (Auto) Neut % (Auto) Lymph % (Auto) [place] % (Auto) Eos % (Auto) Baso % (Auto) Lymph # (Auto) [place] # (Auto) Eos # (Auto) Baso # (Auto) Abs Immat Gran (auto) Absolute Neuts (auto) Absolute Nucleated RBC Nucleated RBC % (auto) Neutrophils % (Manual) Band Neutrophils % Lymphocytes % (Manual) Basophils % (Manual) Abs Neuts (Manual) Lymphocytes # (Manual) Basophils # (Manual) Hypersegmented Neuts Platelet Estimate Plt Morphology Comment RBC Morphology Smear Tech's Comments Sodium Potassium Chloride Carbon Dioxide Anion Gap BUN Creatinine Estim Creat Clear Calc Estimated GFR Random Glucose Lactic Acid Lactic Acid F/U @ 2Hr 2.6 H* Calcium Total Bilirubin AST ALT Alkaline Phosphatase Total Protein Albumin Urine Color Urine Appearance Urine pH Ur Specific [place] Urine Protein Urine Glucose (UA) Urine Ketones Urine Blood Urine Nitrite Ur Leukocyte Esterase Urine RBC Urine WBC Ur Squamous Epith Cells Urine Bacteria Hyaline Casts Influenza Type A (PCR) Influenza Type B (PCR) RSV RNA Qual (PCR) SARS-CoV-2 RNA (RT-PCR) Airway Mallampati Class: I TM Dist: >3cm Neck ROM: Full Loose/Missing/Broken Teeth: No Heart: RRR Lungs: CTA Assessment and Plan Assessment Anesthesia Assessment: Anesthesia Plan Discussed and Chart Reviewed Final Anesthetic Review Family History of Problems with Anesthesia: No History of Problems with Anesthesia: No NPO: Yes ASA Class: II and Emergency Final Preanesthetic Review: No Changes in Pt Med Stat, Meds/Allgs Chart Reviewed, Consent Obtained/Reviewed and Anes Risks/Benef Reviewed Patient Risk: Intermediate Procedure Risk: Intermediate Anesthetic Plan Anesthetic Plan: GA Disposition: Standard PACU
--- NOTE | 2024-05-05 16:41 | PC.NURSE ---
Nurse to Nurse given to Mariann Rider.
--- NOTE | 2024-05-05 16:46 | P.HPGS_ITS ---
History of Present Illness History of Present Illness Date of Service: 05/05/24 Chief complaint: nausea and vomiting Narrative: Noemí Brooke is a 83 year old female with some history of progressing dementia who comes in after having nausea and vomiting today. She also says that she noted that there was a lump in her right groin today it is not very tender but it is present. She does not believe it was there yesterday but is not sure. Her daughter is concerned that she may not be reliable in what she remembers. Patient has had 3 C-sections in the past but no previous inguinal hernia repairs. Here in the emergency room the patient is very thin the bulge in the right groin is easily noticeable. She had a CT scan of her abdomen and pelvis which shows a loop of small bowel incarcerated in the inguinal area consistent with a complete obstruction. No evidence of any perforation etc.. Patient's white count is also elevated 23. She is tender in the right groin area. At this point she is not vomiting anymore. Labs otherwise are okay. Plan to carry to the operative room for reduction and repair of right inguinal hernia which maybe a femoral hernia most likely Review of Systems Review of Systems: Yes all other systems are reviewed and are negative [facility] Past Medical History Medical History (Updated 05/05/24 @ 16:12 by Wilfrid Mills MD) Dementia Hypertension Social History Social History Smoked in Last 30 Days: No Use of substances other than those prescribed or required for medical reasons: No Advance Directives: No Advance Directives Information Provided: Yes Do you have a plan to hurt others: No Plan Meds Allergies Allergy/AdvReac Type Severity Reaction Status Date / Time No Known Allergies Allergy Verified 05/05/24 09:11 [No Known Allergies*] Active Medications: Current Medications Fentanyl (Fentanyl Citrate/Pf 100 Mcg/2 Ml Vial) 25 mcg IVPUSH Q5M PRN PRN Reason: Pain, Severe (Pain Scale 7-10) Stop: 05/05/24 22:13 Hydromorphone HCl (Hydromorphone Hcl 0.5 Mg/0.5 Ml Syringe) 0.25 mg IVPUSH Q5M PRN PRN Reason: Pain, Moderate to Severe (Pain Scale 4-10) Stop: 05/05/24 22:14 Naloxone HCl (Naloxone Hcl 0.4 Mg/Ml Vial) 0.04 mg IVPUSH Q5M PRN PRN Reason: Excessive sedation or RR < 8 Home Medications ?Medication ?Instructions ?Recorded ?Confirmed ?Last Taken ?Type magnesium oxide 400 mg (241.3 mg 400 mg PO DAILY 05/05/24 05/05/24 05/05/24 History magnesium) tablet metoprolol succinate 50 mg 50 mg PO DAILY 05/05/24 05/05/24 05/05/24 History tablet,extended release 24 hr Physical Exam Vital Signs: Vital Signs: Last Vital Signs Temp 98.3 F 05/05/24 16:27 Pulse 81 05/05/24 16:27 Resp 16 05/05/24 16:27 BP 156/81 H 05/05/24 16:27 Pulse Ox 100 05/05/24 16:27 O2 Del Method Room Air 05/05/24 16:27 BMI result Body Mass Index 18.7 Const: General: cooperative, healthy appearing and comfortable Nutritional Appearance: underweight Orientation/consciousness: patient oriented x3 Resp: Auscultation: clear to auscultation bilaterally Cardio: Rate: regular rate Rhythm: regular rhythm GI: Other: Abdomen is soft flat nondistended quiet right groin area is palpable mass nonreducible. Little tender with deep palpation Neuro: General: patient oriented x3 Results Results Labs: Short CBC 05/05/24 Range/Units 09:42 WBC 23.2 H (4.8-10.8) X10*3/uL Hgb 15.4 (12.0-16.0) g/dl Hct 46.0 (37.0-47.0) % Plt Count 260 (160-400) X10*3/uL BMP 05/05/24 09:42 Sodium 139 Potassium 4.0 Chloride 102 Carbon Dioxide 22 BUN 27 H Creatinine 1.29 Calcium 10.1 Liver Function 05/05/24 Range/Units 09:42 Total Bilirubin 0.5 (0.0-1.0) mg/dL AST 32 H (5-31) U/L ALT 14 (0-31) U/L Alkaline Phosphatase 73 (39-117) U/L Albumin 4.6 (3.5-5.0) g/dL Urine 05/05/24 Range/Units 15:34 Urine Color Yellow Urine Appearance Cloudy Urine pH 5.5 (5.0-9.0) Ur Specific Scott >= 1.030 H (1.005-1.025) Urine Protein 100 (2+) H (Neg-Trace) mg/dL Urine Glucose (UA) Negative (Negative) mg/dL Abdomen CT scan report/results: report reviewed and image reviewed CT scan - pelvis: report reviewed and image reviewed Additional studies: [address] [address] [address] Scan Report Signed with Addenda Patient: Noemí Brooke MR#: [id number] : 1940 Acct:[id number] Age/Sex: 83 / F ADM Date: 05/05/24 Loc: HO.ED Attending Dr: Ordering Physician: Tootie Daev Date of Service: 05/05/24 Procedure(s): CT abdomen pelvis wo IV con Accession Number(s): [id number] cc: Jacob Bailey MD; Tootie Dave~ Report Number: [id number]: Total DLP = 283.00 mGy-cm ADDENDUMThis document has been electronically signed by: Fran Link MD on 05/05/2024 11:52:48 ADDENDUM: This report was discussed with Tenzin Sommers on May 05, 2024 12:03:00 EST. This document has been electronically signed by: Korin Contreras on 05/05/2024 12:03:41 Addendum Dictated By: Fran Link MD Addendum Signed By: <Electronically signed by Fran Link MD in OV> 05/05/24 1204 Addendum Cosigned By: DD/ TD/TT: 05/05/24 CLINICAL HISTORY: N V, bowel obstruction CT abdomen without IV contrast. Comparison: Current KUB. No prior imaging. Findings: Marked distention of the stomach and markedly dilated small bowel with right inguinal hernia containing a small bowel loop and ascites concerning for site of obstruction . Severe narrowing of the herniated segment at the mouth with the more distal small bowel decompressed. Ingested tablets in the distal stomach. Mild ascites concerning for peritonitis including ascites in the hernia sac. Distal most small bowel loops decompressed. Colon nondilated. Limited assessment of the appendix. No clearly abnormal appendix. Diverticulosis without appreciable diverticulitis. No acute process evident in the lung bases. Heart size normal. Equivocal small hiatal hernia versus reflux. Liver, gallbladder, biliary tree, pancreas, spleen, adrenals and kidneys intact. Calcified nonaneurysmal aorta. No pathologic appearing adenopathy. Decompressed urinary bladder. Pelvic viscera intact. Diffuse degenerative changes lumbar spine. No acute or aggressive appearing bone lesion. Soft tissues intact. Impression: High-grade small bowel obstruction appearing related to right inguinal hernia as detailed. Mild ascites concerning for peritonitis. No apparent free air. No pneumatosis. Other findings as noted. Surgical consultation advised. This document has been electronically signed by: Fran Link MD on 05/05/2024 11:52:48 Dictated By: Fran Link MD Signed By: <Electronically signed by Fran Link MD in OV> 05/05/24 1154 DD/ 1152 TD/TT: 05/05/24 1152 Functional Consultant: Assessment and Plan (1) Small bowel obstruction: Status: Acute Plan 83-year-old female with small-bowel obstruction secondary to right inguinal hernia with small bowel incarcerated. Plan to carry out urgent reduction and repair of hernia with possible small-bowel resection. Hopefully the small bowel is still viable but [place] [id number]. Risks and benefits were discussed with the patient and her daughter including but not limited to infection bleeding possible hernia recurrence despite the so wished to proceed. They understand that this is an urgent emergent operation. We will also get the medical team to consult on her other issues. Quality Stroke Does the patient have a stroke diagnosis?: No VTE Prior VTE?: No VTE Risk Level:: Surgical - moderate VTE Device Contraindication: N/A - Device Ordered VTE Drug Contraindication: N/A - Med Ordered Procedures Date of Service Date of Service: 05/05/24
[2024-05-05 17:53] LABS: Reflex Lactate? 2 Y
--- NOTE | 2024-05-05 19:39 | P.OP_ITS ---
Operative Note Operative Note Date of Service: 05/05/24 Narrative: Preop diagnosis--incarcerated right femoral hernia Postop diagnosis--incarcerated right femoral hernia with compromised small bowel Procedure--reduction and repair right femoral hernia with small bowel resection and anastomosis Surgeon--Robinson Anesthesia--general endotracheal tube anesthesia History--patient is 83-year-old female who noticed a lump in her right groin area today and was having nausea and vomiting and her daughter brought her into the emergency room where the bump was noted to be hernia and CT scan showed incarcerated small bowel present. She also had an elevated white count of 23. Plan is to go to the OR for exploration and possible bowel resection Findings-- Patient had a knuckle of small bowel in the right groin through the femoral canal that was incarcerated but on reduction and opening up the peritoneal sac we are able to see a segment of small bowel that had a purple color area that did not look very viable and just proximal to this there was a soft squishy mass extending about 2 3 cm so this entire area was resected and the proximal and distal small bowel reanastomosis was with marquis. Procedure-- Patient was brought to the operative room under Anesthesia guidance intubated. She had compression stockings placed before induction received preoperative antibiotics. Nazairo catheter was placed. Her abdomen was prepped and draped in standard surgical fashion. A right inguinal incision was created and with a scalpel and cautery dissection was carried down to the external oblique fascia. The bump was noted to be below the inguinal ligament and then the soft tissue ar ound that bump mass was dissected out such that we got right onto the hernia. Attention was focused to the external oblique fascia which was opened and the round ligament was clamped and suture ligated and transected. Now the floor of the inguinal canal was opened up and then with a combination of pulling and pushing and then opening up the femoral ring a little bit more on the medial aspect we are able to reduce the hernia into the pelvic area. The hernia sac was opened up and dark fluid was suctioned out. The small bowel was then brought into view and pulled and immediately it was noted a small segment which had been the segment that was incarcerated had part of it aspect dark purplish blackish in color and probably was not viable although was still intact. Just proximal to this was about 2 3 cm of a soft mass and this whole area was resected with the CHRIS stapler proximally and distally. The entire segment was probably about 10 cm of small bowel then a [id number] anastomosis was created with the CHRIS 60 stapler and the TA stapler to transect the opening. There was some oozing from the staple lines that was cauterized suture ligated and then eventually imbricated. The mesenteric defect was closed with Vicryl suture. The area looked good there was a nice anastomosis with the connection palpable. The small bowel was now placed back into the peritoneal cavity and the p eritoneum was closed with some running Vicryl suture. Now attention was focused on the defect in the femoral canal and a small piece of Prolene mesh was rolled up and then secured inside to the lacunar ligament and the inguinal ligament after cleaning the area with Betadine saline. This role of the mesh extended more outside of the femoral canal down towards the leg area and 1 or 2 stitches was used on this other and the secured in place. It looked quite good and closed off the defect. The femoral vein was kept intact. Now the inguinal floor was closed with a running suture and then the other piece of mesh was placed over this and secured with interrupted Ethibond sutures. The external oblique fascia was then closed over the mesh and some interrupted sutures were used to close the soft tissue over this. Local was used in the area and then marquis were used to approximate the skin edges. At the end of the case all sponge instrument and needle counts were correct estimated blood loss was about 5 cc. The small bowel segment was sent for pathology. Patient was extubated returned stable to the recovery room with Nazario catheter left in place.
--- NOTE | 2024-05-05 20:17 | P.CONHOSP_ITS ---
History of Present Illness Data of Consult Service Date: 05/05/24 Requesting physician: Nyla Bowers Primary Care Provider: Jacob Bailey MD HPI Reason for consult: medical management Pt is an 83 yo f with a pmhx significant for dementia, HTN, hx breast ca s/p lumpectomy and radiation last year, and 3 c-sections, who presented to the ED with abd pain, nausea, vomiting, and weakness. she was found to have an incarcerated R femoral hernia and SBO, no s/p reduction and repair of R femoral hernia with small bowel resection and anastamosis with Dr Bowers. Hospitalist consult placed for medical management. Denies CP, SOB, nausea, vomiting. has garcia in place, draining. Review of Systems 2 Constitutional: Constitutional: Denies body ache(s), Denies chills, Denies fatigue and Denies fever(s) Eyes: Eyes: Denies change in vision ENT: Denies nasal congestion, Denies nasal discharge and Denies sore throat Cardiovascular: Cardiovascular: Denies chest pain, Denies rapid heart rate, Denies leg edema, Denies lightheadedness and Denies dyspnea Respiratory: Respiratory: Denies chest congestion, Denies cough, Denies dyspnea and Denies wheezing Gastrointestinal: Gastrointestinal: Denies diarrhea, Denies nausea and Denies vomiting Genitourinary: Genitourinary: Denies dysuria Musculoskeletal: Musculoskeletal: Denies myalgias Integumentary/Breasts: Skin/Breast: Denies rash Neurologic: Denies confusion Psychiatric: Psychiatric: Denies confusion Endocrine: Endocrine: Denies fatigue Hematologic/Lymphatic: Hematologic/Lymphatic: Denies easy bleeding and Denies easy bruising Allergic/Immunologic: Allergic/Immunologic: Denies wheezing [facility] Medical History (Updated 05/05/24 @ 16:12 by Wilfrid Mills MD) Dementia Hypertension Social History Household Members: Spouse Housing: House Do you presently have visiting nurse or other home services: No Patient Tobacco Use Status: Never used Tobacco Smoked in Last 30 Days: No Use of substances other than those prescribed or required for medical reasons: No Currently Displaying Signs/Symptoms of Drug Intoxication Withdrawal: No Have you been hit, kicked, punched, or otherwise hurt by someone within the past year? If so, by whom?: No Do you feel safe in your current relationship?: Yes Is there a partner from a previous relationship who is making you feel unsafe now?: No Are you made to feel afraid or neglected: No Advance Directives: No Advance Directives Information Provided: Yes Do you have a plan to hurt others: No Plan Nutrition Risks: No Nutritional Risk Patient : No Meds Allergies Allergy/AdvReac Type Severity Reaction Status Date / Time No Known Allergies Allergy Verified 05/05/24 09:11 [No Known Allergies*] Active Medications: Current Medications Acetaminophen (Acetaminophen 325 Mg Tablet) 650 mg PO Q6H PRN PRN Reason: Pain, Mild 1-3,fever,headache Famotidine (Famotidine/Pf 20 Mg/2 Ml Vial) 20 mg IVPUSH DAILY [facility] Fentanyl (Fentanyl Citrate/Pf 100 Mcg/2 Ml Vial) 25 mcg IVPUSH Q5M PRN PRN Reason: Pain, Severe (Pain Scale 7-10) Stop: 05/05/24 22:13 Hydromorphone HCl (Hydromorphone Hcl 0.5 Mg/0.5 Ml Syringe) 0.25 mg IVPUSH Q5M PRN PRN Reason: Pain, Moderate to Severe (Pain Scale 4-10) Stop: 05/05/24 22:14 Sodium Chloride (Ns) 1,000 mls @ 84 mls/hr IVCONT .[id number] [facility] Cefazolin Sodium 1 gm/ Sodium (Chloride) 100 mls @ 200 mls/hr IV Q6H [facility] Stop: 05/06/24 23:30 Morphine Sulfate (Morphine Sulfate 4 Mg/Ml Cartridge) 2 mg IVPUSH Q4H PRN; Protocol PRN Reason: Pain, Severe (Pain Scale 7-10) Naloxone HCl (Naloxone Hcl 0.4 Mg/Ml Vial) 0.04 mg IVPUSH Q5M PRN PRN Reason: Excessive sedation or RR < 8 Sodium Chloride (0.9 % Sodium Chloride Flush 3 Ml Syringe) 3 ml IVFLUSH QSHIFT [facility] Home Medications ?Medication ?Instructions ?Recorded ?Confirmed ?Last Taken ?Type magnesium oxide 400 mg (241.3 mg 400 mg PO DAILY 05/05/24 05/05/24 05/05/24 History magnesium) tablet metoprolol succinate 50 mg 50 mg PO DAILY 05/05/24 05/05/24 05/05/24 History tablet,extended release 24 hr Physical Exam 2 Vital Signs and Narrative: Vital Signs: Last Vital Signs Temp 97.4 F 05/05/24 19:50 Pulse 75 05/05/24 19:50 Resp 16 05/05/24 19:50 BP 143/63 H 05/05/24 19:50 Pulse Ox 100 05/05/24 19:50 O2 Del Method Nasal Cannula 05/05/24 19:50 O2 Flow Rate 2 05/05/24 19:50 BMI result Body Mass Index 18.7 General: AOx3, no acute distress Resp: CTA bilaterally CVS: S1, S2, RRR GI: +BS, NT, no distention Skin: Warm, dry Neuro: Cranial nerves II-XII grossly intact bilaterally. Motor grossly intact bilaterally Extremities: No LE edema Psych: Appropriate affect Const: General: No confusion Orientation/consciousness: No confusion Neuro: General: No confusion Results Labs 05/05/24 09:42 05/05/24 09:42 Labs: Laboratory Results - last 24 hr 05/05/24 05/05/24 05/05/24 09:42 12:35 15:34 MCV 93.3 MCH 31.2 MCHC 33.5 RDW 12.2 Plt Count 260 MPV 10.0 Immature Gran % (Auto) Cancelled Neut % (Auto) Cancelled Lymph % (Auto) Cancelled [facility] % (Auto) Cancelled Eos % (Auto) Cancelled Baso % (Auto) Cancelled Lymph # (Auto) Cancelled [facility] # (Auto) Cancelled Eos # (Auto) Cancelled Baso # (Auto) Cancelled Abs Immat Gran (auto) Cancelled Absolute Neuts (auto) Cancelled Absolute Nucleated RBC 0.000 Nucleated RBC % (auto) 0.0 Neutrophils % (Manual) 92 H Band Neutrophils % 2 L Lymphocytes % (Manual) 5 L Basophils % (Manual) 1 Abs Neuts (Manual) 21.8 H Lymphocytes # (Manual) 1.2 Basophils # (Manual) 0.2 Hypersegmented Neuts PRESENT Platelet Estimate NORMAL Plt Morphology Comment NORM RBC Morphology NORMAL Smear Tech's Comments MANUAL DIFF Anion Gap 19 Estim Creat Clear Calc 23.8 Estimated GFR 40 Random Glucose 164 H Lactic Acid 2.6 H* Lactic Acid F/U @ 2Hr Calcium 10.1 Total Bilirubin 0.5 AST 32 H ALT 14 Alkaline Phosphatase 73 Total Protein 8.6 H Albumin 4.6 Urine Color Yellow Urine Appearance Cloudy Urine pH 5.5 Ur Specific [place] >= 1.030 H Urine Protein 100 (2+) H Urine Glucose (UA) Negative Urine Ketones Trace Urine Blood Negative Urine Nitrite Negative Ur Leukocyte Esterase Negative Urine RBC 0-2 Urine WBC 0-5 Ur Squamous Epith Cells 3-5 Urine Bacteria None Seen Hyaline Casts 6-10 Influenza Type A (PCR) NEGATIVE Influenza Type B (PCR) NEGATIVE RSV RNA Qual (PCR) NEGATIVE SARS-CoV-2 RNA (RT-PCR) NEGATIVE 05/05/24 15:50 MCV MCH MCHC RDW Plt Count MPV Immature Gran % (Auto) Neut % (Auto) Lymph % (Auto) [facility] % (Auto) Eos % (Auto) Baso % (Auto) Lymph # (Auto) [facility] # (Auto) Eos # (Auto) Baso # (Auto) Abs Immat Gran (auto) Absolute Neuts (auto) Absolute Nucleated RBC Nucleated RBC % (auto) Neutrophils % (Manual) Band Neutrophils % Lymphocytes % (Manual) Basophils % (Manual) Abs Neuts (Manual) Lymphocytes # (Manual) Basophils # (Manual) Hypersegmented Neuts Platelet Estimate Plt Morphology Comment RBC Morphology Smear Tech's Comments Anion Gap Estim Creat Clear Calc Estimated GFR Random Glucose Lactic Acid Lactic Acid F/U @ 2Hr 2.6 H* Calcium Total Bilirubin AST ALT Alkaline Phosphatase Total Protein Albumin Urine Color Urine Appearance Urine pH Ur Specific [place] Urine Protein Urine Glucose (UA) Urine Ketones Urine Blood Urine Nitrite Ur Leukocyte Esterase Urine RBC Urine WBC Ur Squamous Epith Cells Urine Bacteria Hyaline Casts Influenza Type A (PCR) Influenza Type B (PCR) RSV RNA Qual (PCR) SARS-CoV-2 RNA (RT-PCR) Assessment and Plan (1) S/P hernia repair: Status: Acute (2) S/P small bowel resection: Status: Acute Plan Pt is an 83 yo f with a pmhx significant for dementia, HTN, hx breast ca s/p lumpectomy and radiation last year, and 3 c-sections, who presented to the ED with abd pain, nausea, vomiting, and weakness. No medical complaints currently. s/p R femoral hernia repair with small bowel resection - plan per surgery HTN - continue metoprolol Thank you for allowing me to participate in the pt's care. Signing off for now. Please contact the medical team if any questions or concerns.
[2024-05-05] MEDS: 0.9 % Sodium Chloride 1,000 ML 84 ML IVCONT (20:21)
[2024-05-05 21:25] LABS: ~Lactic Acid-LAB USE ONLY 2.3 mmol/L (0.5-2.0)
[2024-05-06 04:00] VITALS: BP 121/68; PULSE 92; RESP 18; TEMP 36.7; O2SAT 95
[2024-05-06 07:01] LABS: Basophils Absolute Auto 0.1 X10*3/uL (0.0-0.2); Basophils Percent Auto 0.4 % (0-2); Eosinophils Absolute Auto 0.1 X10*3/uL (0.0-0.4); Eosinophils Percent Auto 0.4 % (0-4); Hematocrit 37.7 % (37.0-47.0); Hemoglobin 12.7 g/dl (12.0-16.0); Imm Gran Abs Auto 0.04 X10*3/uL (0.00-0.03); Imm Gran Pct Auto 0.3 % (0.0-0.4); Lymphocytes Absolute Auto 0.5 X10*3/uL (1.2-4.9); Lymphocytes Percent Auto 3.3 % (20-40); MANUAL DIFF FLAG SCAN; Mean Corpuscular HGB Conc 33.7 g/dl (31.0-35.0); Mean Corpuscular Hemoglobin 31.8 pg (27.0-33.0); Mean Corpuscular Volume 94.5 fL (80.0-98.0); Mean Platelet Volume 10.6 fL (9.4-12.3); Monocytes Absolute Auto 0.7 X10*3/uL (0.1-1.2); Monocytes Percent Auto 5.1 % (2-11); Neutrophils Absolute Auto 12.4 x10*3/uL (2.0-8.3); Neutrophils Percent Auto 90.5 % (45-73); Platelet Count 197 X10*3/uL (160-400); Red Blood Count 3.99 X10*6/uL (4.20-5.50); SCAN SMEAR FLAG 1; White Blood Count 13.7 X10*3/uL (4.8-10.8)
[2024-05-06 07:15] VITALS: BP 119/66; PULSE 92; RESP 16; TEMP 36.7; O2SAT 93
[2024-05-06 07:40] LABS: Anion Gap 14 (12-20); Blood Urea Nitrogen 23 mg/dL (9-16); Calcium 8.2 mg/dL (8.4-10.2); Carbon Dioxide 23 mmol/L (22-29); Chloride 106 mmol/L (96-108); Creatinine Clr Calc Pharmacy 32.6; Estimated Glomerular Filt Rate 57; Glucose Random 160 mg/dL (60-115); Potassium 3.9 mmol/L (3.3-5.1); Sodium 139 mmol/L (135-145)
[2024-05-06 08:33] LABS: SLIDE REVIEW VERIFIED
--- NOTE | 2024-05-06 08:37 | P.PNGS_ITS ---
Subjective Subjective Date of Service: 05/06/24 <Paulette Srivastava PA-C - Last Filed: 05/06/24 08:40> 05/06/24 <Nyla Bowers MD - Last Filed: 05/06/24 13:30> Interval history: Reports some mild incisional discomfort but overall feels ok. Denies nausea, flatus. Has not been OOB yet. <Paulette Srivastava PA-C - Last Filed: 05/06/24 08:40> Physical Exam 2 Vital Signs: Vital Signs: Last Vital Signs Temp 98.0 F 05/06/24 07:15 Pulse 92 05/06/24 07:15 Resp 16 05/06/24 07:15 BP 119/66 05/06/24 07:15 Pulse Ox 93 05/06/24 07:15 O2 Del Method Room Air 05/06/24 07:15 O2 Flow Rate 2 05/05/24 20:16 BMI result Body Mass Index 18.7 <Paulette Srivastava PA-C - Last Filed: 05/06/24 08:40> Const: General: comfortable, no acute distress and alert <Paulette Srivastava PA-C - Last Filed: 05/06/24 08:40> Resp: Effort & Inspection: normal respiratory effort <ESTEFANY Nichols Last Filed: 05/06/24 08:40> GI: Inspection: Yes distended (softly ) and Yes incision (dressing C/D/I) <Paulette Srivastava PA-C - Last Filed: 05/06/24 08:40> Palpation (GI): Soft to palpation, Tenderness to palpation present (GI) (mild incisional) and no guarding <Paulette Srivastava PA-C - Last Filed: 05/06/24 08:40> Percussion: Yes tympanic to percussion <ESTEFANY Nichols Last Filed: 05/06/24 08:40> Skin: General skin exam: no rashes or lesions noted <ESTEFANY Nichols Last Filed: 05/06/24 08:40> Neuro: General: moves all extremities <ESTEFANY Nichols Last Filed: 05/06/24 08:40> Objective Data Active Medications Acetaminophen (Acetaminophen 325 Mg Tablet) 650 mg PO Q6H PRN PRN Reason: Pain, Mild 1-3,fever,headache Famotidine (Famotidine/Pf 20 Mg/2 Ml Vial) 20 mg IVPUSH DAILY [facility] Sodium Chloride (Ns) 1,000 mls @ 84 mls/hr IVCONT .[id number] [facility] Last Admin: 05/05/24 20:21 Dose: 84 mls/hr Documented By: JANELLE Cefazolin Sodium 1 gm/ Sodium (Chloride) 50 mls @ 100 mls/hr IV Q6H [facility] Stop: 05/06/24 23:30 Last Infusion: 05/06/24 05:34 Dose: Infused Documented By: JANELLE Morphine Sulfate (Morphine Sulfate 4 Mg/Ml Cartridge) 2 mg IVPUSH Q4H PRN; Protocol PRN Reason: Pain, Severe (Pain Scale 7-10) Sodium Chloride (0.9 % Sodium Chloride Flush 3 Ml Syringe) 3 ml IVFLUSH QSHIFT [facility] Last Admin: 05/05/24 23:38 Dose: Not Given Documented By: JANELLE Non-Admin Reason: IV Running <Paulette Srivastava PA-C - Last Filed: 05/06/24 08:40> Labs CBC & Chem 7: 05/06/24 05:56 05/06/24 05:56 <Paulette Srivastava PA-C - Last Filed: 05/06/24 08:40> Labs: Laboratory Results - last 24 hr 05/05/24 05/05/24 05/05/24 09:42 12:35 15:34 MCV 93.3 MCH 31.2 MCHC 33.5 RDW 12.2 Plt Count 260 MPV 10.0 Immature Gran % (Auto) Cancelled Neut % (Auto) Cancelled Lymph % (Auto) Cancelled [place] % (Auto) Cancelled Eos % (Auto) Cancelled Baso % (Auto) Cancelled Lymph # (Auto) Cancelled [place] # (Auto) Cancelled Eos # (Auto) Cancelled Baso # (Auto) Cancelled Abs Immat Gran (auto) Cancelled Absolute Neuts (auto) Cancelled Absolute Nucleated RBC 0.000 Nucleated RBC % (auto) 0.0 Neutrophils % (Manual) 92 H Band Neutrophils % 2 L Lymphocytes % (Manual) 5 L Basophils % (Manual) 1 Abs Neuts (Manual) 21.8 H Lymphocytes # (Manual) 1.2 Basophils # (Manual) 0.2 Hypersegmented Neuts PRESENT Platelet Estimate NORMAL Plt Morphology Comment NORM RBC Morphology NORMAL Smear Tech's Comments MANUAL DIFF Anion Gap 19 Estim Creat Clear Calc 23.8 Estimated GFR 40 Random Glucose 164 H Lactic Acid 2.6 H* Lactic Acid F/U @ 2Hr Lactic Acid F/U @ 4Hr Calcium 10.1 Total Bilirubin 0.5 AST 32 H ALT 14 Alkaline Phosphatase 73 Total Protein 8.6 H Albumin 4.6 Urine Color Yellow Urine Appearance Cloudy Urine pH 5.5 Ur Specific [place] >= 1.030 H Urine Protein 100 (2+) H Urine Glucose (UA) Negative Urine Ketones Trace Urine Blood Negative Urine Nitrite Negative Ur Leukocyte Esterase Negative Urine RBC 0-2 Urine WBC 0-5 Ur Squamous Epith Cells 3-5 Urine Bacteria None Seen Hyaline Casts 6-10 Influenza Type A (PCR) NEGATIVE Influenza Type B (PCR) NEGATIVE RSV RNA Qual (PCR) NEGATIVE SARS-CoV-2 RNA (RT-PCR) NEGATIVE 05/05/24 05/05/24 05/06/24 15:50 20:54 05:56 MCV 94.5 MCH 31.8 MCHC 33.7 RDW 12.0 Plt Count 197 MPV 10.6 Immature Gran % (Auto) 0.3 Neut % (Auto) 90.5 H Lymph % (Auto) 3.3 L [place] % (Auto) 5.1 Eos % (Auto) 0.4 Baso % (Auto) 0.4 Lymph # (Auto) 0.5 L [place] # (Auto) 0.7 Eos # (Auto) 0.1 Baso # (Auto) 0.1 Abs Immat Gran (auto) 0.04 H Absolute Neuts (auto) 12.4 H Absolute Nucleated RBC 0.000 Nucleated RBC % (auto) 0.0 Neutrophils % (Manual) Band Neutrophils % Lymphocytes % (Manual) Basophils % (Manual) Abs Neuts (Manual) Lymphocytes # (Manual) Basophils # (Manual) Hypersegmented Neuts Platelet Estimate Plt Morphology Comment RBC Morphology Smear Tech's Comments VERIFIED Anion Gap 14 Estim Creat Clear Calc 32.6 Estimated GFR 57 Random Glucose 160 H Lactic Acid Lactic Acid F/U @ 2Hr 2.6 H* Lactic Acid F/U @ 4Hr 2.3 H* Calcium 8.2 L D Total Bilirubin AST ALT Alkaline Phosphatase Total Protein Albumin Urine Color Urine Appearance Urine pH Ur Specific [place] Urine Protein Urine Glucose (UA) Urine Ketones Urine Blood Urine Nitrite Ur Leukocyte Esterase Urine RBC Urine WBC Ur Squamous Epith Cells Urine Bacteria Hyaline Casts Influenza Type A (PCR) Influenza Type B (PCR) RSV RNA Qual (PCR) SARS-CoV-2 RNA (RT-PCR) <Paulette Srivastava PA-C - Last Filed: 05/06/24 08:40> Procedures Date of Service Date of Service: 05/06/24 <Paulette Srivastava PA-C - Last Filed: 05/06/24 08:40> 05/06/24 <Nyla Bowers MD - Last Filed: 05/06/24 13:30> Progress Note: A&P Assessment and plan (1) S/P small bowel resection: Status: Acute <Paulette Srivastava PA-C - Last Filed: 05/06/24 08:40> (2) Small bowel obstruction: Status: Acute <aPulette Srivastava PA-C - Last Filed: 05/06/24 08:40> (3) S/P hernia repair: Status: Acute <ESTEFANY Nichols Last Filed: 05/06/24 08:40> Assessment and Plan: POD #1 s/p reduction and repair right femoral hernia with small bowel resection and anastomosis for strangulated femoral hernia, SBO. Overall doing fairly well post op. Abd very benign, softly distended, dressing clean and intact. Will dc garcia. Ok for sips of clears. Will advance further once some evidence of GI function. Increase activity, incentive spirometer, PT consult. < ESTEFANY Nichols Last Filed: 05/06/24 08:40> POD #1 s/p reduction and repair right femoral hernia with small bowel resection and anastomosis for strangulated femoral hernia, SBO. Overall doing fairly well post op. Abd very benign, softly distended, dressing clean and intact. Will dc garcia. Ok for sips of clears. Will advance further once some evidence of GI function. Increase activity, incentive spirometer, PT consult. Patient seen and agree with the above assessment and exam. Overall improving she does have some improving bowel sounds no significant flatus as yet and her abdomen is still mildly distended. Plan to continue with IV fluids antibiotics to end today ambulate with physical therapy and advance diet when she is passing better gas. This was extensively discussed with the patient as well as her daughter and they understand and agree with the above plan <Nyla Bowers MD - Last Filed: 05/06/24 13:30> Time Spent With Patient Time: Total time managing care of this patient today ____ minutes. <Paulette Srivastava PA-C - Last Filed: 05/06/24 08:40> Quality Stroke Does the patient have a stroke diagnosis?: No <Paulette Srivastava PA-C - Last Filed: 05/06/24 08:40> VTE Prior VTE?: No <Paulette Srivastava PA-C - Last Filed: 05/06/24 08:40> VTE Risk Level:: Surgical - moderate <Paulette Srivastava PA-C - Last Filed: 05/06/24 08:40> VTE Device Contraindication: N/A - Device Ordered <Paulette Srivastava PA-C - Last Filed: 05/06/24 08:40> VTE Drug Contraindication: N/A - Med Ordered <ESTEFANY Nichols Last Filed: 05/06/24 08:40>
[2024-05-06] MEDS: 0.9 % Sodium Chloride 1,000 ML 84 ML IVCONT ×2 (08:39→20:38)
[2024-05-06] MEDS: Famotidine/PF 20 MG/2 ML VIAL IVPUSH (08:39)
--- NOTE | 2024-05-06 09:33 | MHC.CM.PN ---
[facility] DELIVERED PT LIVES WITH [facility]. PT IS FUNCTIONALLY INDEPENDENT. NO SERVICES OR DME. +HCP PCP DR. MARCELINA MALDONADO DP: HOME, NO SERVICES ANTICIPATED. PT'S FAMILY WILL TRANSPORT. CM WILL CONTINUE TO FOLLOW FOR ANY CHANGE TO DC PLAN/NEEDS.
[2024-05-06 11:34] VITALS: BP 123/68; PULSE 90; RESP 16; TEMP 36.7; O2SAT 95
[2024-05-06] MEDS: Acetaminophen 325 MG TABLET 650 MG PO (13:21)
[2024-05-06 14:16] VITALS: BMI 18.7
--- NOTE | 2024-05-06 14:21 | MHC.CLN ---
NUTRITION CURRENTLY NPO. S/P HERNIA REPAIR. BMI=18.7 AND PT IS 94% IBW. FOLLOW FOR DIET ADVANCEMENT AND PO INTAKE. SEE CLINICAL NUTRITION ASSESSMENT 05/06/24.
[2024-05-06 15:00] VITALS: BP 130/64; PULSE 85; RESP 18; TEMP 37.1; O2SAT 96
[2024-05-06 19:00] VITALS: BP 136/80; PULSE 86; RESP 16; TEMP 36.8; O2SAT 97
[2024-05-06] MEDS: 0.9 % Sodium Chloride Flush 3 ML SYRINGE IVFLUSH (20:43)
[2024-05-06] MEDS: Morphine Sulfate 4 MG/ML CARTRIDGE 2 MG IVPUSH (23:11)
[2024-05-06 23:33] VITALS: BP 127/63; PULSE 90; RESP 16; TEMP 36.3; O2SAT 96
[2024-05-07 03:00] VITALS: BP 130/66; PULSE 88; RESP 16; TEMP 36.2; O2SAT 96
[2024-05-07] MEDS: Acetaminophen 325 MG TABLET 650 MG PO ×2 (05:37→16:08)
[2024-05-07 07:00] VITALS: BP 141/72; PULSE 95; RESP 18; TEMP 36.5; O2SAT 96
[2024-05-07] MEDS: Famotidine/PF 20 MG/2 ML VIAL IVPUSH (08:50)
[2024-05-07] MEDS: 0.9 % Sodium Chloride 1,000 ML 84 ML IVCONT ×2 (08:51→20:38)
--- NOTE | 2024-05-07 09:59 | HO.POSTANES ---
Post Anesthesia Evaluation Post Anesthesia Evaluation Date of Service: 05/07/24 Vital Signs: Vital Signs Temp Pulse Resp BP Pulse Ox O2 Del Method 05/07/24 07:00 97.7 F 95 18 141/72 H 96 Room Air 05/07/24 03:00 97.2 F 88 16 130/66 96 Room Air 05/06/24 23:33 97.4 F 90 16 127/63 96 Room Air Anesthesia: General Mental Status: Awake Pain Control: Satisfactory Nausea/Vomiting: None Anesthesia-Related Issues: No Anes. Related Issues
--- NOTE | 2024-05-07 11:27 | P.PNGS_ITS ---
Subjective Subjective Date of Service: 05/07/24 <Paulette Srivastava PA-C - Last Filed: 05/07/24 11:30> 05/07/24 <Jani Joel MD - Last Filed: 05/07/24 11:38> Interval history: Tolerating sips without nausea or vomiting. OOb to recliner today. Has ambulated with PT yesterday. No flatus or BM yet. Pain is minimal. <Paulette Srivastava PA-C - Last Filed: 05/07/24 11:30> Physical Exam 2 Vital Signs: Vital Signs: Last Vital Signs Temp 97.7 F 05/07/24 07:00 Pulse 95 05/07/24 07:00 Resp 18 05/07/24 07:00 BP 141/72 H 05/07/24 07:00 Pulse Ox 96 05/07/24 07:00 O2 Del Method Room Air 05/07/24 07:00 O2 Flow Rate 2 05/05/24 20:16 BMI result Body Mass Index 18.7 <Paulette Srivastava PA-C - Last Filed: 05/07/24 11:30> Const: General: comfortable, no acute distress and alert <ESTEFANY Nichols Last Filed: 05/07/24 11:30> Orientation/consciousness: patient oriented x3 <ESTEFANY Nichols Last Filed: 05/07/24 11:30> Resp: Effort & Inspection: normal respiratory effort <Paulette Srivastava PA-C - Last Filed: 05/07/24 11:30> GI: Inspection: Yes distended and Yes incision (clean) <Paulette Srivastava PA-C - Last Filed: 05/07/24 11:30> Palpation (GI): Soft to palpation, Tenderness to palpation present (GI) (mild incisional) and no guarding <ESTEFANY Nichols Last Filed: 05/07/24 11:30> Percussion: Yes tympanic to percussion <ESTEFANY Nichols Last Filed: 05/07/24 11:30> Skin: General skin exam: no rashes or lesions noted and no jaundice < ESTEFANY Nichols Last Filed: 05/07/24 11:30> Neuro: General: patient oriented x3 <Paulette Srivastava PA-C - Last Filed: 05/07/24 11:30> Objective Data Active Medications Acetaminophen (Acetaminophen 325 Mg Tablet) 650 mg PO Q6H PRN PRN Reason: Pain, Mild 1-3,fever,headache Last Admin: 05/07/24 05:37 Dose: 650 mg Documented By: TAYO Famotidine (Famotidine/Pf 20 Mg/2 Ml Vial) 20 mg IVPUSH DAILY [facility] Last Admin: 05/07/24 08:50 Dose: 20 mg Documented By: MEHNAZ Sodium Chloride (Ns) 1,000 mls @ 84 mls/hr IVCONT .[id number] [facility] Last Admin: 05/07/24 08:51 Dose: 84 mls/hr Documented By: MEHNAZ Morphine Sulfate (Morphine Sulfate 4 Mg/Ml Cartridge) 2 mg IVPUSH Q4H PRN; Protocol PRN Reason: Pain, Severe (Pain Scale 7-10) Last Admin: 05/06/24 23:11 Dose: 2 mg Documented By: TAYO Sodium Chloride (0.9 % Sodium Chloride Flush 3 Ml Syringe) 3 ml IVFLUSH QSHIFT [facility] Last Admin: 05/07/24 08:46 Dose: Not Given Documented By: MEHNAZ Non-Admin Reason: IV Running <Paulette Srivastava PA-C - Last Filed: 05/07/24 11:30> Labs CBC & Chem 7: 05/06/24 05:56 05/06/24 05:56 <Paulette Srivastava PA-C - Last Filed: 05/07/24 11:30> Microbiology Microbiology Results: Microbiology 05/05/24 12:34 Blood Culture - Preliminary Blood - Venous No growth after 24 hours. 05/05/24 12:34 Blood Culture - Preliminary Blood - Venous No growth after 24 hours. <Paulette Srivastava PA-C - Last Filed: 05/07/24 11:30> Procedures Date of Service Date of Service: 05/07/24 <Paulette Srivastava PA-C - Last Filed: 05/07/24 11:30> 05/07/24 <Jani Joel MD - Last Filed: 05/07/24 11:38> Progress Note: A&P Assessment and plan (1) S/P hernia repair: Status: Acute <Paulette Srivastava PA-C - Last Filed: 05/07/24 11:30> Assessment and Plan: Says she feels well Sore on incision but states this is getting better Abdomen is soft and benign Incision clean and dry Start clear liquids Ambulate Pain management Seen and examined independently <Jani Joel MD - Last Filed: 05/07/24 11:38> (2) S/P small bowel resection: Status: Acute <Paulette Srivastava PA-C - Last Filed: 05/07/24 11:30> (3) Small bowel obstruction: Status: Acute <Paulette Srivastava PA-C - Last Filed: 05/07/24 11:30> Assessment and Plan: POD #2 s/p reduction and repair right femoral hernia with small bowel resection and anastomosis for strangulated femoral hernia, SBO. Continues to overall well post op but no evidence of return of GI function and abd remains distended. Keep on sips until some evidence of GI function. Increase activity, incentive spirometer, PT. Cont IVF for now. Discussed with daughter. <Paulette Srivastava PA-C - Last Filed: 05/07/24 11:30> Time Spent With Patient Time: Total time managing care of this patient today ____ minutes. <Paulette Srivastava PA-C - Last Filed: 05/07/24 11:30> Quality Stroke Does the patient have a stroke diagnosis?: No <Paulette Srivastava PA-C - Last Filed: 05/07/24 11:30> VTE Prior VTE?: No <Paulette Srivastava PA-C - Last Filed: 05/07/24 11:30> VTE Risk Level:: Surgical - moderate <Paulette Srivastava PA-C - Last Filed: 05/07/24 11:30> VTE Device Contraindication: N/A - Device Ordered <Paulette Srivastava PA-C - Last Filed: 05/07/24 11:30> VTE Drug Contraindication: N/A - Med Ordered <Paulette Srivastava PA-C - Last Filed: 05/07/24 11:30>
--- NOTE | 2024-05-07 13:40 | MHC.CM.PN ---
P.T. HAS RECOMMENDED HOME WITH SERVICES WHEN DC. PT/DAUGHTER HAVE NO PREFERENCE TO [facility]. REFERRAL MADE TO [facility]. PT WILL DC TO DAUGHTER'S HOME IN [place] WHEN MEDICALLY CLEARED.
[2024-05-07 15:00] VITALS: BP 165/95; PULSE 99; RESP 18; TEMP 36.9; O2SAT 97
[2024-05-07 19:00] VITALS: BP 168/88; PULSE 84; RESP 18; TEMP 36.6; O2SAT 98
[2024-05-07 23:00] VITALS: BP 176/79; PULSE 95; RESP 16; TEMP 36.2; O2SAT 95
[2024-05-08] VITALS (7 sets, daily range): BP systolic 141–182; BP diastolic 78–97; PULSE 77–98; RESP 12–18; TEMP 36.1–36.7; O2SAT 95–98; BMI 18.7
[2024-05-08] MEDS: 0.9 % Sodium Chloride Flush 3 ML SYRINGE IVFLUSH (00:07)
[2024-05-08] MEDS: Acetaminophen 325 MG TABLET 650 MG PO (06:36)
--- NOTE | 2024-05-08 07:37 | PM.PNGS ---
Subjective Subjective Date of Service: 05/08/24 <Paulette Srivastava PA-C - Last Filed: 05/08/24 07:39> 05/08/24 <Jani Joel MD - Last Filed: 05/08/24 08:26> Interval history: Continues to complain of mild incisional discomfort. No flatus or BM. Has been ambulating halls. Tolerating sips, denies nausea. <Paulette Srivastava PA-C - Last Filed: 05/08/24 07:39> Physical Exam Vital Signs: Vital Signs: Last Vital Signs Temp 97.0 F 05/08/24 03:00 Pulse 86 05/08/24 03:00 Resp 16 05/08/24 03:00 BP 168/80 H 05/08/24 03:00 Pulse Ox 97 05/08/24 03:00 O2 Del Method Room Air 05/08/24 03:00 O2 Flow Rate 2 05/05/24 20:16 BMI result Body Mass Index 18.7 <Paulette Srivastava PA-C - Last Filed: 05/08/24 07:39> Const: General: comfortable, no acute distress and alert <Paulette Srivastava PA-C - Last Filed: 05/08/24 07:39> Orientation/consciousness: patient oriented x3 <ESTEFANY Nichols Last Filed: 05/08/24 07:39> Resp: Effort & Inspection: normal respiratory effort <Paulette Srivastava PA-C - Last Filed: 05/08/24 07:39> GI: Inspection: Yes distended and Yes incision (clean) <Paulette Srivastava PA-C - Last Filed: 05/08/24 07:39> Palpation (GI): Soft to palpation <ESTEFANY Nichols Last Filed: 05/08/24 07:39> Percussion: Yes tympanic to percussion <ESTEFANY Nichols Last Filed: 05/08/24 07:39> Skin: General skin exam: no rashes or lesions noted <ESTEFANY Nichols Last Filed: 05/08/24 07:39> Neuro: General: patient oriented x3 and moves all extremities <Paulette Srivastava PA-C - Last Filed: 05/08/24 07:39> Objective Data Active Medications Acetaminophen (Acetaminophen 325 Mg Tablet) 650 mg PO Q6H PRN PRN Reason: Pain, Mild 1-3,fever,headache Last Admin: 05/08/24 06:36 Dose: 650 mg Documented By: TAYO Famotidine (Famotidine/Pf 20 Mg/2 Ml Vial) 20 mg IVPUSH DAILY [facility] Last Admin: 05/07/24 08:50 Dose: 20 mg Documented By: MEHNAZ Morphine Sulfate (Morphine Sulfate 4 Mg/Ml Cartridge) 2 mg IVPUSH Q4H PRN; Protocol PRN Reason: Pain, Severe (Pain Scale 7-10) Last Admin: 05/06/24 23:11 Dose: 2 mg Documented By: TAYO Sodium Chloride (0.9 % Sodium Chloride Flush 3 Ml Syringe) 3 ml IVFLUSH QSHIFT [facility] Last Admin: 05/08/24 00:07 Dose: 3 ml Documented By: TAYO <Paulette Srivastava PA-C - Last Filed: 05/08/24 07:39> Labs CBC & Chem 7: 05/06/24 05:56 05/08/24 07:32 <Paulette Srivastava PA-C - Last Filed: 05/08/24 07:39> Microbiology Microbiology Results: Microbiology 05/05/24 12:34 Blood Culture - Preliminary Blood - Venous No growth after 48 hours. 05/05/24 12:34 Blood Culture - Preliminary Blood - Venous No growth after 48 hours. <Paulette Srivastava PA-C - Last Filed: 05/08/24 07:39> Procedures Date of Service Date of Service: 05/08/24 <Paulette Srivastava PA-C - Last Filed: 05/08/24 07:39> 05/08/24 <Jani Joel MD - Last Filed: 05/08/24 08:26> Progress Note: A&P Assessment and plan (1) S/P small bowel resection: Status: Acute <Paulette Srivastava PA-C - Last Filed: 05/08/24 07:39> Assessment and Plan: Has a mild incisional pain Says she is achy all over Denies flatus Denies nausea or vomiting Abdomen distended but soft We will keep on sips of clears for now Encouraged more ambulation Await return of GI function Exam benign otherwise Seen and examined independently <Jani Joel MD - Last Filed: 05/08/24 08:26> (2) S/P hernia repair: Status: Acute <Paulette Srivastava PA-C - Last Filed: 05/08/24 07:39> (3) Small bowel obstruction: Status: Acute <Paulette Srivastava PA-C - Last Filed: 05/08/24 07:39> Assessment and Plan: POD #3 s/p reduction and repair right femoral hernia with small bowel resection and anastomosis for strangulated femoral hernia, SBO. Continues to overall well post op but no evidence of return of GI function and abd remains distended. Keep on sips until some evidence of GI function. Increase activity, incentive spirometer, PT. Cont IVF for now. Consult nutrition for PPN, repeat labs. <Paulette Srivastava PA-C - Last Filed: 05/08/24 07:39> Time Spent With Patient Time: Total time managing care of this patient today ____ minutes. <Paulette Srivastava PA-C - Last Filed: 05/08/24 07:39> Quality Stroke Does the patient have a stroke diagnosis?: No <Paulette Srivastava PA-C - Last Filed: 05/08/24 07:39> VTE Prior VTE?: No <Paulette Srivastava PA-C - Last Filed: 05/08/24 07:39> VTE Risk Level:: Surgical - moderate <Paulette Srivastava PA-C - Last Filed: 05/08/24 07:39> VTE Device Contraindication: N/A - Device Ordered <ESTEFANY Nichols Last Filed: 05/08/24 07:39> VTE Drug Contraindication: N/A - Med Ordered <Paulette Srivastava PA-C - Last Filed: 05/08/24 07:39>
[2024-05-08 08:07] LABS: Anion Gap 15 (12-20); Blood Urea Nitrogen 18 mg/dL (9-16); Calcium 8.4 mg/dL (8.4-10.2); Carbon Dioxide 18 mmol/L (22-29); Chloride 108 mmol/L (96-108); Creatinine Clr Calc Pharmacy 43.3; Estimated Glomerular Filt Rate > 60; Glucose Fasting 77 mg/dL (60-99); Potassium 3.6 mmol/L (3.3-5.1); Sodium 137 mmol/L (135-145)
[2024-05-08] MEDS: Famotidine/PF 20 MG/2 ML VIAL IVPUSH (09:27)
--- NOTE | 2024-05-08 10:31 | MHC.CLN ---
NUTRITION CONSULT FOR PPN RECS. CURRENTLY NPO. COMMUNICATED WITH PHARMACY. RECOMMEND START PPN AT 30 ML PER HOUR TO PROVIDE 31 G PROTEIN, 72 G DEXTROSE, 367 KCALS. REPLETE LYTES NEEDED. CHECK TRIGLYCERIDES. PATIENT QUALIFIES MODERATELY MALNOURISHED WITH NPO STATUS AND MILDLY DEPLETED MUSCLE MASS AND BODY FAT. FOLLOW FOR PPN TOLERANCE AND DIET ADVANCEMENT. SEE CLINICAL NUTRITION ASSESSMENT 05/08/24.
[2024-05-08 10:47] LABS: Albumin Level 2.8 g/dL (3.5-5.0); Magnesium 1.8 mg/dL (1.6-2.6); Triglycerides 122 mg/dL (<150)
[2024-05-08 11:21] LABS: Phosphorus 2.2 mg/dL (2.7-4.5)
[2024-05-08] MEDS: Magnesium Oxide 400 MG TABLET PO (12:28)
[2024-05-08] MEDS: Metoprolol Succinate ER 50 MG TAB.ER.24H PO (12:28)
[2024-05-08] MEDS: Morphine Sulfate 4 MG/ML CARTRIDGE 2 MG IVPUSH (12:31)
--- NOTE | 2024-05-08 14:21 | MHC.CM.PN ---
[facility] REVIEWED AND PER MD ROUNDS, PT IS NOT MEDICALLY CLEARED FOR DC (AWAITING GI FUNCTION TO RETURN, PPN ) CM WILL CONTINUE TO FOLLOW FOR ANY CHANGE TO DC PLAN. [facility] UPDATED AND FOLLOWING.
--- NOTE | 2024-05-08 14:26 | PM.EVENT ---
Event Note Date of Service: 05/08/24 Event Note: Seen on afternoon rounds She has been ambulating Looks well and comfortable Abdomen is soft although with some distention She denies flatus Awaiting for return of GI function PPN Encouraged ambulation Clinically looks well overall Time Spent With Patient Time: Total time managing care of this patient today ____ minutes.
[2024-05-08] MEDS: Parenteral Nutrition 720 ML 30 ML IV (20:59)
[2024-05-09] VITALS (7 sets, daily range): BP systolic 136–170; BP diastolic 73–80; PULSE 65–86; RESP 14–18; TEMP 36.1–36.7; O2SAT 93–98
[2024-05-09 06:52] LABS: Anion Gap 13 (12-20); Blood Urea Nitrogen 19 mg/dL (9-16); Calcium 8.1 mg/dL (8.4-10.2); Carbon Dioxide 18 mmol/L (22-29); Chloride 110 mmol/L (96-108); Creatinine Clr Calc Pharmacy 44.5; Estimated Glomerular Filt Rate > 60; Glucose Random 96 mg/dL (60-115); Magnesium 2.1 mg/dL (1.6-2.6); Phosphorus 1.7 mg/dL (2.7-4.5); Potassium 4.5 mmol/L (3.3-5.1); Sodium 136 mmol/L (135-145)
--- NOTE | 2024-05-09 08:16 | PM.PNGS ---
Subjective Subjective Date of Service: 05/09/24 <Paulette Srivastava PA-C - Last Filed: 05/09/24 08:21> 05/09/24 <Jani Joel MD - Last Filed: 05/09/24 08:48> Interval history: Had a small liquid BM. Feels less bloated this morning. Would like to eat. OOB and ambulating. Upset this morning as she reports she is going to live with her daughter permanently. <Paulette Srivastava PA-C - Last Filed: 05/09/24 08:21> Physical Exam Vital Signs: Vital Signs: Last Vital Signs Temp 97.6 F 05/09/24 07:00 Pulse 85 05/09/24 07:00 Resp 18 05/09/24 07:00 BP 141/79 H 05/09/24 07:00 Pulse Ox 97 05/09/24 07:00 O2 Del Method Room Air 05/09/24 07:00 O2 Flow Rate 2 05/05/24 20:16 BMI result Body Mass Index 18.7 <Paulette Srivastava PA-C - Last Filed: 05/09/24 08:21> Const: General: comfortable, no acute distress and alert <Paulette Srivastava PA-C - Last Filed: 05/09/24 08:21> Resp: Effort & Inspection: normal respiratory effort <ESTEFANY Nichols Last Filed: 05/09/24 08:21> GI: Other: remains distended but less abd soft incision clean <Paulette Srivastava PA-C - Last Filed: 05/09/24 08:21> Skin: General skin exam: no rashes or lesions noted <Paulette Srivastava PA-C - Last Filed: 05/09/24 08:21> Neuro: General: moves all extremities <ESTEFANY Nichols Last Filed: 05/09/24 08:21> Objective Data Active Medications Acetaminophen (Acetaminophen 325 Mg Tablet) 650 mg PO Q6H PRN PRN Reason: Pain, Mild 1-3,fever,headache Last Admin: 05/08/24 06:36 Dose: 650 mg Documented By: TAYO Famotidine (Famotidine/Pf 20 Mg/2 Ml Vial) 20 mg IVPUSH DAILY [facility] Last Admin: 05/08/24 09:27 Dose: 20 mg Documented By: CASEY Nutrition (Parenteral) (Parenteral Nutrition) 720 mls @ 30 mls/hr IV .Q24H [facility]; Protocol Stop: 05/09/24 20:59 Last Admin: 05/08/24 20:59 Dose: 30 mls/hr Documented By: TRAN Magnesium Oxide (Magnesium Oxide 400 Mg Tablet) 400 mg PO DAILY [facility] Last Admin: 05/08/24 12:28 Dose: 400 mg Documented By: CASEY Metoprolol Succinate (Metoprolol Succinate Er 50 Mg Tab.Er.24h) 50 mg PO DAILY [facility]; Protocol Last Admin: 05/08/24 12:28 Dose: 50 mg Documented By: CASEY Morphine Sulfate (Morphine Sulfate 4 Mg/Ml Cartridge) 2 mg IVPUSH Q4H PRN; Protocol PRN Reason: Pain, Severe (Pain Scale 7-10) Last Admin: 05/08/24 12:31 Dose: 2 mg Documented By: CASEY Pharmacy Consult (Consult Rx Parenteral Nutrition Ordering) 1 each MISCELLANE DAILY PRN PRN Reason: Consult order Sodium Chloride (0.9 % Sodium Chloride Flush 3 Ml Syringe) 3 ml IVFLUSH QSHIFT [facility] Last Admin: 05/09/24 00:29 Dose: Not Given Documented By: TRAN Non-Admin Reason: IV Running <Paulette Srivastava PA-C - Last Filed: 05/09/24 08:21> Labs CBC & Chem 7: 05/06/24 05:56 05/09/24 05:47 <Paulette Srivastava PA-C - Last Filed: 05/09/24 08:21> Labs: Laboratory Results - last 24 hr 05/08/24 05/09/24 07:32 05:47 Anion Gap 13 Estim Creat Clear Calc 44.5 Estimated GFR > 60 Random Glucose 96 Calcium 8.1 L Phosphorus 2.2 L 1.7 L Magnesium 1.8 2.1 Albumin 2.8 L 3.0 L Triglycerides 122 <Paulette Srivastava PA-C - Last Filed: 05/09/24 08:21> Procedures Date of Service Date of Service: 05/09/24 <ESTEFANY Nichols Last Filed: 05/09/24 08:21> 05/09/24 <Jani Joel MD - Last Filed: 05/09/24 08:48> Progress Note: A&P Assessment and plan (1) Small bowel obstruction: Status: Acute <Paulette Srivastava PA-C - Last Filed: 05/09/24 08:21> Assessment and Plan: Has had BMs Abdomen remained soft, benign She looks well Incision is clean and dry We will start on clear liquids and advance as tolerated I had a long discussion with her daughter at bedside - the patient has history of dementia which seems to be worsening The daughter wants to bring the patient home with her instead of rehab I have discussed the above with the family caseworker Seen and examined independently <Jani Joel MD - Last Filed: 05/09/24 08:48> (2) S/P hernia repair: Status: Acute <Pauletet Srivastava PA-C - Last Filed: 05/09/24 08:21> (3) S/P small bowel resection: Status: Acute <Paulette Srivastava PA-C - Last Filed: 05/09/24 08:21> (4) Malnutrition of moderate degree: Status: Acute <Paulette Srivastava PA-C - Last Filed: 05/09/24 08:21> Assessment and Plan: POD #4 s/p reduction and repair right femoral hernia with small bowel resection and anastomosis for strangulated femoral hernia, SBO. Had small BM. Feels improved. VSS- SBP has been persistently elevated. Will advance to clear liquids. Increase activity, incentive spirometer, PT. Cont PPN for now until oral intake improved. On metoprolol, will ask hospitalists to resee regarding HTN. <Paulette Srivastava PA-C - Last Filed: 05/09/24 08:21> Time Spent With Patient Time: Total time managing care of this patient today ____ minutes. <Paulette Srivastava PA-C - Last Filed: 05/09/24 08:21> Quality Stroke Does the patient have a stroke diagnosis?: No <Paulette Srivastava PA-C - Last Filed: 05/09/24 08:21> VTE Prior VTE?: No <ESTEFANY Nichols Last Filed: 05/09/24 08:21> VTE Risk Level:: Surgical - moderate <ESTEFANY Nichols Last Filed: 05/09/24 08:21> VTE Device Contraindication: N/A - Device Ordered <ESTEFANY Nichols Last Filed: 05/09/24 08:21> VTE Drug Contraindication: N/A - Med Ordered <ESTEFANY Nichols Last Filed: 05/09/24 08:21>
[2024-05-09] MEDS: Metoprolol Succinate ER 50 MG TAB.ER.24H PO (09:22)
[2024-05-09] MEDS: Magnesium Oxide 400 MG TABLET PO (09:22)
[2024-05-09] MEDS: Famotidine/PF 20 MG/2 ML VIAL IVPUSH (09:37)
--- NOTE | 2024-05-09 09:57 | MHC.CLN ---
F/U PATIENT IS MODERATELY MALNOURISHED WITH POOR PO INTAKE R/T PROLONGED NPO STATUS AND MILDLY DEPLETED MUSCLE MASS AND BODY FAT WITH LOW BMI SEE CLINICAL NUTRITION ASSESSMENT 05/08/24 DIET ADVANCED TO C/L TODAY PER MD WILL CONTINUE PPN PER MD DISCUSSED WITH PHARMACY RECOMMEND INCREASING PPN TO MAX GOAL RATE 60 ML/HR WITH 60G LIPIDS TO PROVIDE 1334 TOTAL KCALS (30KCALS/KG), 61G PROTEIN (1.4G/KG), 144G DEXTROSE REPLETE LYTES NEEDED MONITOR PO INTAKE OF C/L DIET
[2024-05-09] MEDS: Parenteral Nutrition 1,440 ML 60 ML IV (21:39)
[2024-05-09] MEDS: 0.9 % Sodium Chloride Flush 3 ML SYRINGE IVFLUSH (21:45)
[2024-05-10] VITALS (8 sets, daily range): BP systolic 139–178; BP diastolic 78–87; PULSE 73–78; RESP 12–18; TEMP 36.1–36.4; O2SAT 93–96
[2024-05-10 06:32] LABS: Albumin Level 2.6 g/dL (3.5-5.0); Anion Gap 12 (12-20); Blood Urea Nitrogen 17 mg/dL (9-16); Calcium 8.1 mg/dL (8.4-10.2); Carbon Dioxide 23 mmol/L (22-29); Chloride 108 mmol/L (96-108); Creatinine Clr Calc Pharmacy 44.5; Estimated Glomerular Filt Rate > 60; Glucose Random 136 mg/dL (60-115); Magnesium 1.9 mg/dL (1.6-2.6); Phosphorus 2.7 mg/dL (2.7-4.5); Potassium 3.7 mmol/L (3.3-5.1); Sodium 139 mmol/L (135-145)
--- NOTE | 2024-05-10 07:40 | P.PNGS_ITS ---
Subjective Subjective Date of Service: 05/10/24 <Paulette Srivastava PA-C - Last Filed: 05/10/24 07:43> 05/10/24 <Jani Joel MD - Last Filed: 05/10/24 11:20> Interval history: Reports she is confused and upset. Had episode of incontinence in bed this am. RN reports alternating periods of confusion and lucidness overnight. She reports having another BM this morning. denies pain. <Paulette Srivastava PA-C - Last Filed: 05/10/24 07:43> Physical Exam 2 Vital Signs: Vital Signs: Last Vital Signs Temp 96.9 F 05/10/24 03:00 Pulse 78 05/10/24 03:00 Resp 16 05/10/24 03:00 BP 143/78 H 05/10/24 03:00 Pulse Ox 93 05/10/24 03:00 O2 Del Method Room Air 05/10/24 03:00 O2 Flow Rate 2 05/05/24 20:16 BMI result Body Mass Index 18.7 <Paulette Srivastava PA-C - Last Filed: 05/10/24 07:43> Const: General: comfortable, no acute distress and alert <Paulette Srivastava PA-C - Last Filed: 05/10/24 07:43> Orientation/consciousness: patient oriented x3 <Paulette Srivastava PA-C - Last Filed: 05/10/24 07:43> Resp: Effort & Inspection: normal respiratory effort <Paulette Srivastava PA-C - Last Filed: 05/10/24 07:43> GI: Inspection: No distended and Yes incision (clean) <Paulette Srivastava PA-C - Last Filed: 05/10/24 07:43> Palpation (GI): Soft to palpation and nontender <ESTEFANY Nichols Last Filed: 05/10/24 07:43> Skin: General skin exam: no rashes or lesions noted <ESTEFANY Nichols Last Filed: 05/10/24 07:43> Neuro: General: patient oriented x3 and moves all extremities <ESTEFANY Nichols Last Filed: 05/10/24 07:43> Objective Data Active Medications Acetaminophen (Acetaminophen 325 Mg Tablet) 650 mg PO Q6H PRN PRN Reason: Pain, Mild 1-3,fever,headache Last Admin: 05/08/24 06:36 Dose: 650 mg Documented By: TAYO Famotidine (Famotidine/Pf 20 Mg/2 Ml Vial) 20 mg IVPUSH DAILY [facility] Last Admin: 05/09/24 09:37 Dose: 20 mg Documented By: CASEY Nutrition (Parenteral) (Parenteral Nutrition) 1,440 mls @ 60 mls/hr IV .Q24H [facility]; Protocol Stop: 05/10/24 20:59 Last Admin: 05/09/24 21:39 Dose: 60 mls/hr Documented By: JOSÉ MIGUEL Magnesium Oxide (Magnesium Oxide 400 Mg Tablet) 400 mg PO DAILY [facility] Last Admin: 05/09/24 09:22 Dose: 400 mg Documented By: CASEY Metoprolol Succinate (Metoprolol Succinate Er 50 Mg Tab.Er.24h) 50 mg PO DAILY [facility]; Protocol Last Admin: 05/09/24 09:22 Dose: 50 mg Documented By: CASEY Morphine Sulfate (Morphine Sulfate 4 Mg/Ml Cartridge) 2 mg IVPUSH Q4H PRN; Protocol PRN Reason: Pain, Severe (Pain Scale 7-10) Last Admin: 05/08/24 12:31 Dose: 2 mg Documented By: CASEY Sodium Chloride (0.9 % Sodium Chloride Flush 3 Ml Syringe) [facility] Last Admin: 05/09/24 21:45 Dose: 3 ml Documented By: JOSÉ MIGUEL <Paulette Srivastava PA-C - Last Filed: 05/10/24 07:43> Labs CBC & Chem 7: 05/06/24 05:56 05/10/24 05:40 <Paulette Srivastava PA-C - Last Filed: 05/10/24 07:43> Labs: Laboratory Results - last 24 hr 05/10/24 05:40 Anion Gap 12 Estim Creat Clear Calc 44.5 Estimated GFR > 60 Random Glucose 136 H Calcium 8.1 L Phosphorus 2.7 Magnesium 1.9 Albumin 2.6 L <Paulette Srivastava PA-C - Last Filed: 05/10/24 07:43> Procedures Date of Service Date of Service: 05/10/24 <Paulette Srivastava PA-C - Last Filed: 05/10/24 07:43> 05/10/24 <Jani Joel MD - Last Filed: 05/10/24 11:20> Progress Note: A&P Assessment and plan (1) S/P small bowel resection: Status: Acute <Paulette Srivastava PA-C - Last Filed: 05/10/24 07:43> Assessment and Plan: Feels well Tolerating oral intake Denies significant pain Has had BMs Abdomen is soft Incision clean Diet as tolerated Plan to DC home after lunch if she continues to do well Has had periods of confusion during this admission - according to daughter, the patient has worsening dementia Instructions given Seen and examined independently <Jani Joel MD - Last Filed: 05/10/24 11:20> (2) S/P hernia repair: Status: Acute <Paulette Srivastava PA-C - Last Filed: 05/10/24 07:43> (3) Small bowel obstruction: Status: Acute <Paulette Srivastava PA-C - Last Filed: 05/10/24 07:43> (4) Malnutrition of moderate degree: Status: Acute <Paulette Srivastava PA-C - Last Filed: 05/10/24 07:43> Assessment and Plan: POD #5 s/p reduction and repair right femoral hernia with small bowel resection and anastomosis for strangulated femoral hernia, SBO. GI function returned. More confused this morning. Advance to solids and dc PPN and transition to oral supplements. Increase activity, incentive spirometer, PT. Possible home (to daughters) latertoday if tolerating diet. <Paulette Srivastava PA-C - Last Filed: 05/10/24 07:43> Time Spent With Patient Time: Total time managing care of this patient today ____ minutes. <Paulette Srivastava PA-C - Last Filed: 05/10/24 07:43> Quality Stroke Does the patient have a stroke diagnosis?: No <ESTEFANY Nichols Last Filed: 05/10/24 07:43> VTE Prior VTE?: No <Paulette Srivastava PA-C - Last Filed: 05/10/24 07:43> VTE Risk Level:: Surgical - moderate <ESTEFANY Nichols Last Filed: 05/10/24 07:43> VTE Device Contraindication: N/A - Device Ordered <Paulette Srivastava PA-C - Last Filed: 05/10/24 07:43> VTE Drug Contraindication: N/A - Med Ordered <Paulette Srivastava PA-C - Last Filed: 05/10/24 07:43>
[2024-05-10] MEDS: Metoprolol Succinate ER 50 MG TAB.ER.24H PO (08:23)
[2024-05-10] MEDS: Magnesium Oxide 400 MG TABLET PO (08:23)
[2024-05-10] MEDS: Famotidine/PF 20 MG/2 ML VIAL IVPUSH (08:23)
[2024-05-10] MEDS: 0.9 % Sodium Chloride Flush 3 ML SYRINGE IVFLUSH ×2 (08:26→23:16)
[2024-05-10] MEDS: Acetaminophen 325 MG TABLET 650 MG PO (09:42)
--- NOTE | 2024-05-10 09:45 | MHC.CLN ---
F/U DIET ADVANCED THIS MORNING TO REGULAR. ADDING ENSURE TID TO PROMOTE NUTRITIONAL INTAKE. SUPPLEMENT PROVIDES 1050 KCALS, 60 G PROTEIN. DISCONTINUE PPN PER PROVIDER. PHARMACY AWARE. MONITOR FOR DIET TOLERANCE AND PO INTAKE.
--- NOTE | 2024-05-10 14:31 | PM.EVENT ---
Event Note Date of Service: 05/10/24 Event Note: On afternoon rounds Tolerating diet but says she feels ?full and bloated? Looks well Abdomen is soft but mildly distended We will hold off on discharge for now and see how she does overnight Discussed with her daughter Jabariantonieta Time Spent With Patient Time: Total time managing care of this patient today ____ minutes.
[2024-05-11 03:49] VITALS: BP 178/86; PULSE 82; RESP 18; TEMP 36.4; O2SAT 94
[2024-05-11 04:30] VITALS: BP 149/72; PULSE 82
--- NOTE | 2024-05-11 05:16 | PC.NURSE ---
blood pressure elevated after patient ambulated to the bathroom. Bp rechecked 149/72, hr 82. Patient resting in bed, offers no complaints at this time.
[2024-05-11 06:49] LABS: Albumin Level 2.7 g/dL (3.5-5.0); Anion Gap 11 (12-20); Blood Urea Nitrogen 15 mg/dL (9-16); Calcium 8.2 mg/dL (8.4-10.2); Carbon Dioxide 24 mmol/L (22-29); Chloride 106 mmol/L (96-108); Creatinine Clr Calc Pharmacy 45.1; Estimated Glomerular Filt Rate > 60; Glucose Random 98 mg/dL (60-115); Magnesium 1.8 mg/dL (1.6-2.6); Potassium 3.7 mmol/L (3.3-5.1); Sodium 137 mmol/L (135-145)
[2024-05-11 07:45] VITALS: BP 153/88; PULSE 82; RESP 16; TEMP 36; O2SAT 93
--- NOTE | 2024-05-11 08:24 | PM.PNGS ---
Subjective Subjective Date of Service: 05/11/24 Interval history: Patient feels improved this morning and feels ready for discharge to home. She denies any abdominal discomfort at this time and reports eating dinner without nausea or vomiting. Physical Exam Vital Signs: Vital Signs: Last Vital Signs Temp 96.8 F 05/11/24 07:45 Pulse 82 05/11/24 07:45 Resp 16 05/11/24 07:45 BP 153/88 H 05/11/24 07:45 Pulse Ox 93 05/11/24 07:45 O2 Del Method Room Air 05/11/24 07:45 O2 Flow Rate 2 05/05/24 20:16 BMI result Body Mass Index 18.7 Const: General: no acute distress Nutritional Appearance: thin Orientation/consciousness: patient oriented x3 Resp: Effort & Inspection: normal respiratory effort, no audible wheezes, no cough and no respiratory distress GI: Other: Right femoral incision is clean, dry, without redness or discharge. Abdomen is flat, nontender nondistended with normal bowel sounds Skin: Other: Warm, dry, no rash Neuro: General: patient oriented x3 Extrem: Other: No pedal edema Objective Data Active Medications Acetaminophen (Acetaminophen 325 Mg Tablet) 650 mg PO Q6H PRN PRN Reason: Pain, Mild 1-3,fever,headache Last Admin: 05/10/24 09:42 Dose: 650 mg Documented By: BARBARA Famotidine (Famotidine/Pf 20 Mg/2 Ml Vial) 20 mg IVPUSH DAILY [facility] Last Admin: 05/10/24 08:23 Dose: 20 mg Documented By: BARBARA Magnesium Oxide (Magnesium Oxide 400 Mg Tablet) 400 mg PO DAILY [facility] Last Admin: 05/10/24 08:23 Dose: 400 mg Documented By: BARBARA Metoprolol Succinate (Metoprolol Succinate Er 50 Mg Tab.Er.24h) 50 mg PO DAILY [facility]; Protocol Last Admin: 05/10/24 08:23 Dose: 50 mg Documented By: BARBARA Sodium Chloride (0.9 % Sodium Chloride Flush 3 Ml Syringe) 3 ml IVFLUSH QSHIFT [facility] Last Admin: 05/10/24 23:16 Dose: 3 ml Documented By: GLORYASY Labs 05/06/24 05:56 05/11/24 06:09 Labs: Laboratory Results - last 24 hr 05/11/24 06:09 Anion Gap 11 L Estim Creat Clear Calc 45.1 Estimated GFR > 60 Random Glucose 98 Calcium 8.2 L Phosphorus 3.0 Magnesium 1.8 Albumin 2.7 L Microbiology Microbiology Results: Microbiology 05/05/24 12:34 Blood Culture - Final Blood - Venous No growth after 5 days. 05/05/24 12:34 Blood Culture - Final Blood - Venous No growth after 5 days. Procedures Date of Service Date of Service: 05/11/24 Progress Note: A&P Assessment and plan (1) Malnutrition of moderate degree: Status: Acute (2) Small bowel obstruction: Status: Acute (3) S/P small bowel resection: Status: Acute (4) S/P hernia repair: Status: Acute Plan Overall the patient feels much improved and feels ready for discharge. She does appear frail while lying in bed. Wounds are healing nicely without evidence of infection. We will continue with a regular diet. Possible discharge later today or tomorrow to daughter's home. Time Spent With Patient Time: Total time managing care of this patient today ____ minutes. Quality Stroke Does the patient have a stroke diagnosis?: No VTE Prior VTE?: No VTE Risk Level:: Surgical - moderate VTE Device Contraindication: N/A - Device Ordered VTE Drug Contraindication: N/A - Med Ordered
[2024-05-11] MEDS: 0.9 % Sodium Chloride Flush 3 ML SYRINGE IVFLUSH (08:50)
[2024-05-11] MEDS: Metoprolol Succinate ER 50 MG TAB.ER.24H PO (08:50)
[2024-05-11] MEDS: Famotidine/PF 20 MG/2 ML VIAL IVPUSH (08:50)
[2024-05-11] MEDS: Magnesium Oxide 400 MG TABLET PO (08:50)
[2024-05-11] MEDS: Acetaminophen 325 MG TABLET 650 MG PO (08:58)
--- NOTE | 2024-05-11 09:09 | MHC.CM.PN ---
PT WILL DC HOME TODAY WITH NO SERVICES VIA FAMILY TRANSPORT
--- NOTE | 2024-05-11 14:57 | PM.DS ---
DS: Providers Provider Date of Service: 05/11/24 Date of admission: 05/05/24 15:57 Date of discharge: 05/11/24 Primary care physician: Jacob Bailey MD Attending physician on admission: Nyla Bowers Consults: 05/05/24 19:38 Consult to Hospitalist Routine Comment: Consulting Provider: [facility] Hospitalists Reason For Exam: medical management Attending physician on discharge: Santhosh Victor DS: Diagnosis Discharge Diagnosis (1) Malnutrition of moderate degree: Status: Acute (2) Small bowel obstruction: Status: Acute (3) S/P small bowel resection: Status: Acute (4) S/P hernia repair: Status: Acute DS: Summary Hospital Course Hospital Course: HPI AT ADMISSION: patient is 83-year-old female who noticed a lump in her right groin area today and was having nausea and vomiting and her daughter brought her into the emergency room where the bump was noted to be hernia and CT scan showed incarcerated hernia with small bowel present and secondary SBO. She also had an elevated white count of 23. HOSPITAL COURSE: She was admitted to the surgical service for further treatment of the incarcerated hernia. It was recommended to proceed to the OR for exploration, repair of the hernia and possible bowel resection. On 05/05/24, reduction and repair right femoral hernia with small bowel resection and anastomosis was performed by Dr. Bowers without immediate complication. She was found to have a knuckle of small bowel through the femoral canal that was strangulated and therefor resected. She was transferred to the medical telemetry floor. Hospitalist consult was obtained for medical management. She had an uncomplicated but slow recovery course. She was kept on sips of clears until she had some evidence of return of GI function. This took a few days post operatively and nutrition was consulted for PPN recommendations given her moderate malnutrition. PT was consulted, her activity was increased. She began to pass a small amount of flatus and her diet was advanced to clear liquids. She then began to move her bowels and her diet was advanced to solids. On the day of discharge, she was tolerating a solid diet without nausea or vomiting, had no incisional pain, she had good GI function. She was hemodynamically stable and her abdomen was benign with clean incision. She and the daughter felt ready for discharge. She was discharged to home on 05/11/24 in stable condition. She is to follow up in the office in 1-2 weeks. Status at Discharge Functional status at discharge: independent ambulation Overall status at discharge: patient is progressing back to baseline Time Attestation Discharge Coordination Time (in mins): 45 Quality: Safe Use of Opioids Does Pt have an Active Cancer Diagnosis on the Problem List?: No Quality: Stroke Does the patient have a stroke diagnosis?: No Physical Exam Vital Signs: Vital Signs: Last Vital Signs Temp 96.8 F 05/11/24 07:45 Pulse 82 05/11/24 07:45 Resp 16 05/11/24 07:45 BP 153/88 H 05/11/24 07:45 Pulse Ox 93 05/11/24 07:45 O2 Del Method Room Air 05/11/24 07:45 O2 Flow Rate 2 05/05/24 20:16 BMI result Body Mass Index 18.7 Const: General: comfortable, no acute distress and alert Resp: Effort & Inspection: normal respiratory effort GI: Inspection: No distended and Yes incision (clean) Palpation (GI): Soft to palpation, nontender and no guarding Skin: General skin exam: no rashes or lesions noted DS: Data Data Completed and Pending Completed studies during hospitalization [Text1]: 05/05/24 18:52 Surgical [PTH] Routine Small bowel, resection: Small bowel with extensive ischemic injury; negative for malignancy. See comment. Comment: The margins are viable without evidence of significant ischemic injury Discharge Plan Discharge Anticipated Discharge Date/Time: 05/10/24 12:32 Patient Disposition: Home, Self-Care Discharge Diagnosis: strangulated femoral hernia, small bowel resection Referrals: Jacob Bialey MD [Primary Care Provider] - 1 Week Jani Joel MD [Physician] - 2 Weeks Discharge Medications: New docusate sodium [Colace] 100 mg capsule 100 mg PO BID PRN (Reason: constipation) Qty: 30 0RF acetaminophen [Tylenol] 325 mg tablet 650 mg PO Q6H PRN (Reason: pain) Qty: 30 0RF Continued metoprolol succinate 50 mg tablet extended release 24 hr 50 mg PO DAILY magnesium oxide 400 mg (241.3 mg magnesium) Tablet 400 mg PO DAILY Discharge Orders: Discharge Order (Routine); Ordered 05/11/24 Ordered By: Santhosh Victor Diet: Advance to usual diet Activity on Discharge: No heavy lifting Stand Alone Forms: Patient Portal Discharge page Print Language: Northern Irish Activity Restrictions/Additional Instructions: If the incision area is tender, you may apply an ice pack for short intervals (No more than 20 minutes on, followed by at least 20 minutes off). Do not apply heat. Do not use creams, lotions, or topical antibiotics. These can cause infection or allergic reaction. Ok to shower. You have marquis closing your incision and these will be removed approximately 10-14 days after surgery. NO HEAVY LIFTING (>10lbs) or strenuous activity. Follow up in office. ([phone]) Call Your Doctor If: -Your temperature exceeds 101.5? F -You experience excessive pain or swelling -You have an unexpected reaction to medication -You have excessive bleeding -You experience continued vomiting/nausea -Your incision begins to separate -Your incision shows signs of infection such as increased redness, swelling, excessive pain, drainage (light blood or clear fluid is normal) or heat Care Plan Goals: Return to baseline health and resume normal activities following recovery period. Health Concerns: hypertension malnutrition Plan of Treatment: f/u in office in 2 weeks nutrition supplements no heavy lifting Assessment: Doing well post op Discharge Date/Time: 05/11/24 09:48
== END 2024-05-11 09:48 | disposition home or self-care (01) | DRG 330 ==
LOC: HO.ED 12:39 → HO.EDOVER 16:10 → HO.S3 19:14
PROVIDERS: Nurse Practitioner Family; Physician Assistant Surgical; Admitting Provider Surgery; Emergency Provider Emergency Medicine; PCP Internal Medicine; Visit Provider Surgery
PROC: 0DB80ZZ Excision of Small Intestine, Open Approach (ICD-10-PCS; principal; 2024-05-05 16:15)
DX: K41.30 Unilateral femoral hernia, with obstruction, without gangrene, not specified as recurrent (principal); E44.0 Moderate protein-calorie malnutrition; Z68.1 Body mass index [BMI] 19.9 or less, adult; F03.90 Unspecified dementia, unspecified severity, without behavioral disturbance, psychotic disturbance, mood disturbance, and anxiety; K59.00 Constipation, unspecified; Z85.3 Personal history of malignant neoplasm of breast; Z20.822 Contact with and (suspected) exposure to COVID-19; Z79.899 Other long term (current) drug therapy
CPT/HCPCS: 0241U; 36415; 74018; 74176; 80048; 80053; 81001; 82040; 83605; 83735; 84100; 84478; 85007; 85025; 85027; 87040; 88307; 93005; 97116; 97161; 97530; 99285; C1758; C1781; J0330; J0690; J2003; J2270; J2405; J2543; J2704; J3010; J7120

== ENCOUNTER → 2024-05-05 09:20 | Outpatient (BNV) | payer MEDICARE, SELFPAY | PROVIDERS: PCP Internal Medicine; Visit Provider Radiology Diagnostic Radiology | DX: K56.609 Unspecified intestinal obstruction, unspecified as to partial versus complete obstruction (principal); K59.00 Constipation, unspecified | CPT/HCPCS: 74018; 74176 ==

== ENCOUNTER → 2024-05-05 12:38 | Outpatient (BNV) | payer MEDICARE, SELFPAY | PROVIDERS: Admitting Provider Surgery; Emergency Provider Emergency Medicine; PCP Internal Medicine; Visit Provider Internal Medicine | DX: R53.1 Weakness (principal) | CPT/HCPCS: 93010 ==

== ENCOUNTER → 2024-05-05 15:57 | Outpatient (BNV) | payer MEDICARE, SELFPAY | PROVIDERS: Admitting Provider Surgery; Emergency Provider Emergency Medicine; PCP Internal Medicine; Visit Provider Physician Assistant | DX: Z98.890 Other specified postprocedural states (principal); Z87.19 Personal history of other diseases of the digestive system; Z90.49 Acquired absence of other specified parts of digestive tract | CPT/HCPCS: 99222 ==

== ENCOUNTER → 2024-05-05 15:57 | Outpatient (BNV) | payer MEDICARE, SELFPAY | PROVIDERS: Admitting Provider Surgery; Emergency Provider Emergency Medicine; PCP Internal Medicine; Visit Provider Surgery | DX: Z90.49 Acquired absence of other specified parts of digestive tract (principal); Z98.890 Other specified postprocedural states; Z87.19 Personal history of other diseases of the digestive system; K56.609 Unspecified intestinal obstruction, unspecified as to partial versus complete obstruction | CPT/HCPCS: 44120; 99024; 99223; 99499 ==

== ENCOUNTER 2024-05-15 08:48 | Outpatient (AMB) | payer MEDICARE, SELFPAY ==
--- NOTE | 2024-05-15 08:49 | A.OFFVIS_ITS ---
Vital Signs 05/15/24 08:55 Height 5 ft 2 in Weight 101 lb 8 oz BMI 18.6 Intake Visit Reasons: s/p reduction and repair right femoral hernia Intake Note: This patient presents for post-op assessment status post reduction and repair right femoral hernia with small bowel resection and anastomosis. Pt c/o; no concerns pertaining to surgery. Turbinated Bone Grinder Required: No Accompanied by: Daughter Allergies No Known Allergies [No Known Allergies*] Allergy (Verified 05/15/24 08:56) HPI HPI s/p reduction and repair right femoral hernia: Details: 83-year-old female here for a postop visit. She underwent repair of a incarcerated femoral hernia, along with small bowel resection with Dr. Bowers last May 04, 2024. She was discharged last 05/11/2024. She is tolerating diet. She is doing well at home. She denies complaints at this time. [facility] Medical History Dementia Hypertension Surgical History History of femoral hernia repair (~05/05/24) Social History Household Members: Spouse Housing: House Do you presently have visiting nurse or other home services: No Patient Tobacco Use Status: Never used Tobacco service: No Review of Systems Const Denies chills and Denies fever(s) Card Denies chest pain Resp Denies cough GI Denies abdominal pain Physical Exam Const Other: Frail looking but ambulating with some assistance General: comfortable and no acute distress Resp Effort & Inspection: normal respiratory effort GI Other: Right groin incision well healed, not infected, marquis intact, repair intact no recurrence of hernia Assessment & Plan Assessment & Plan (1) S/P hernia repair: Code(s): Z98.890 - Other specified postprocedural states; Z87.19 - Personal history of other diseases of the digestive system Category: Surgical Plan: She is doing very well after repair of an incarcerated right femoral hernia with small bowel resection. I removed all her skin marquis. The repair site is intact She can follow up on a p.r.n. basis. Coding Level of Care Code Global (24203) Diagnoses S/P hernia repair Z98.890; Z87.19
[2024-05-15 08:55] VITALS: BMI 18.6
== END 2024-05-15 09:04 | disposition home or self-care (01) ==
PROVIDERS: PCP Internal Medicine; Visit Provider Surgery
DX: Z98.890 Other specified postprocedural states (principal); Z87.19 Personal history of other diseases of the digestive system
CPT/HCPCS: 99024

== ENCOUNTER → 2024-05-15 08:48 | Outpatient (BNVA) | payer MEDICARE, SELFPAY | PROVIDERS: PCP Internal Medicine; Visit Provider Surgery | DX: Z98.890 Other specified postprocedural states (principal); Z87.19 Personal history of other diseases of the digestive system | CPT/HCPCS: 99212 ==

== ENCOUNTER 2024-11-15 11:34 | Outpatient (REF) | payer MEDICARE, SELFPAY ==
--- OUTSIDE RECORDS SUMMARY | 2024-11-15 11:38 | XMS_ITS | Patient Health Record ---
Author Organization Jacob Bailey MD Address [address] [place] [phone] Care Team Providers Care Overlock Operator Name Role Phone Jacob Bailey Primary Care Provider [phone] Allergies No Known Allergies Results Component Value Reference Range Notes Complete Blood Count Auto Di ff Reviewed date:11/17/2023 09:42:49 AM Interpretation: Performing Lab:[facility], [address] [place] [phone] Notes/Report: White Blood Count 6.1 4.8-10.8 X10*3/uL Red Blood Count 4.50 4.20-5.50 X10*6/uL Hemoglobin 14.1 12.0-16.0 g/dl Hematocrit 42.5 37.0-47.0 % Mean Corpuscular Volume 94.4 80.0-98.0 fL Mean Corpuscular Hemoglobin 31.3 27.0-33.0 pg Mean Corpuscular HGB Conc 33.2 31.0-35.0 g/dl Red Cell Distribution Width 12.5 11.0-16.0 % Platelet Count 225 160-400 X10*3/uL Mean Platelet Volume 10.9 9.4-12.3 fL Neutrophils Percent Auto 53.3 45-73 % Imm Gran Pct Auto 0.5 0.0-0.4 % Lymphocytes Percent Auto 32.1 20-40 % Monocytes Percent Auto 10.0 2-11 % Eosinophils Percent Auto 3.1 0-4 % Basophils Percent Auto 1.0 0-2 % NRBC Pct Auto 0.0 0.0-0.2 /100WBC Neutrophils Absolute Auto 3.2 2.0-8.3 x10*3/u L Imm Gran Abs Auto 0.03 0.00-0.03 X10*3/uL Lymphocytes Absolute Auto 2.0 1.2-4.9 X10*3/u L Monocytes Absolute Auto 0.6 0.1-1.2 X10*3/uL Eosinophils Absolute Auto 0.2 0.0-0.4 X10*3/u L Basophils Absolute Auto 0.1 0.0-0.2 X10*3/uL NRBC Abs Auto 0.000 0.0-0.012 X10*3/uL Comprehensive [place]. Panel Fa Reviewed date:11/16/2023 04:25:40 PM Interpretation: Performing Lab:[facility], [address] [place] [phone] Notes/Report: Sodium 141 135-145 mmol/L Potassium 4.4 3.3-5.1 mmol/L Chloride 108 96-108 mmol/L Carbon Dioxide 24 22-29 mmol/L Anion Gap 13 12-20 Blood Urea Nitrogen 18 9-16 mg/dL Creatinine 0.90 0.5-1.4 mg/dL Estimated Glomerular Filt Rate 60 NOTE: For -Salvadorean individuals, multiply the result by 1.210. Chronic Kidney Disease: Estimated GFR < 60 mL/min/1.73m2 Severe Kidney Disease: Estimated GFR < 15 mL/min/1.73m2 Glucose Fasting 84 60-99 mg/dL Calcium 9.7 8.4-10.2 mg/dL Bilirubin Total 0.4 0.0-1.0 mg/dL Aspartate Amino Transferase 25 5-31 U/L Alanine Aminotransferase 12 0-31 U/L Total Protein 7.1 6.5-8.0 g/dL Albumin Level 4.2 3.5-5.0 g/dL Alkaline Phosphatase 75 39-117 U/L Lipid Panel Reviewed date:11/16/2023 11:56:10 AM Interpretation: Performing Lab:[facility], [address] [place] [phone] Notes/Report: Triglycerides 94 <150 mg/dL Desirable Triglyceride: less than 150 mg/dL Borderline High Triglyceride 150-199 mg/dL High Triglyceride: 200-499 mg/dL Very High Triglyceride: greater than or equal to 5OO mg/dL Cholesterol 238 <200 mg/dL Desirable Cholesterol: less than 200 mg/dL Borderline High Cholesterol: 200-239 mg/dL High Cholesterol: greater than 239 mg/dL LDL Cholesterol Calculated 148 <100 mg/dL Desirable LDL: less than 100 mg/dL Near Optimal/Above Optimal LDL: 110-129 mg/dL Borderline High LDL: 130-159 mg/dL High LDL: 160-189 mg/dL Very High LDL: greater than or equal to 190 mg/dL HDL Cholesterol 72 >40 mg/dL Desirable HDL: greater than 40 mg/dL Note: This HDL assay may give artificially low results in patients with liver disease. UA ClnCatch+Micro w/rflx Cul t Reviewed date:11/16/2023 12:03:49 PM Interpretation: Performing Lab:[facility], [address] [place] [phone] Notes/Report: Urine, Clean Catch Color Urine Yellow Appearance Urine Clear PH 7.0 5.0-9.0 Glucose Urine UA Negative Negative mg/dL Urine Blood Negative Negative Specific Eugene - Urine 1.020 1.005-1.025 Urine Protein Negative Neg-Trace mg/dL Urine Ketones Negative Negative mg/dL Nitrite Urine Negative Negative Leukocyte Esterase Urine Negative Negative RBC Urine 0-2 0-2 /HPF WBC Urine 0-5 0-5 /HPF Squamous Epithelial Cell Urine 0-2 0-2 /HPF Bacteria Urine None Seen None Seen Hyaline Casts Urine 0-2 0-2 /LPF Complete Blood Count Auto Di ff Reviewed date:05/05/2024 04:58:17 PM Interpretation: Performing Lab:[facility], [address] [place] [phone] Notes/Report: White Blood Count 23.2 4.8-10.8 X10*3/uL Test was verified by repeat analysis. Red Blood Count 4.93 4.20-5.50 X10*6/uL Hemoglobin 15.4 12.0-16.0 g/dl Hematocrit 46.0 37.0-47.0 % Mean Corpuscular Volume 93.3 80.0-98.0 fL Mean Corpuscular Hemoglobin 31.2 27.0-33.0 pg Mean Corpuscular HGB Conc 33.5 31.0-35.0 g/dl Red Cell Distribution Width 12.2 11.0-16.0 % Platelet Count 260 160-400 X10*3/uL Mean Platelet Volume 10.0 9.4-12.3 fL Neutrophils Percent Auto 90.5 45-73 % Imm Gran Pct Auto 0.9 0.0-0.4 % Lymphocytes Percent Auto 2.4 20-40 % Monocytes Percent Auto 5.9 2-11 % Eosinophils Percent Auto 0.0 0-4 % Basophils Percent Auto 0.3 0-2 % NRBC Pct Auto 0.0 0.0-0.2 /100WBC Neutrophils Absolute Auto 21.0 2.0-8.3 x10*3/u L Imm Gran Abs Auto 0.21 0.00-0.03 X10*3/uL Lymphocytes Absolute Auto 0.6 1.2-4.9 X10*3/u L Monocytes Absolute Auto 1.4 0.1-1.2 X10*3/uL Eosinophils Absolute Auto 0.0 0.0-0.4 X10*3/u L Basophils Absolute Auto 0.1 0.0-0.2 X10*3/uL NRBC Abs Auto 0.000 0.0-0.012 X10*3/uL CORRECTED REPORT Complete Blood Count Man Nikita Reviewed date:05/05/2024 05:01:34 PM Interpretation: Performing Lab:[facility], [address] [place] [phone] Notes/Report: White Blood Count 23.2 4.8-10.8 X10*3/uL Test was verified by repeat analysis. Red Blood Count 4.93 4.20-5.50 X10*6/uL Hemoglobin 15.4 12.0-16.0 g/dl Hematocrit 46.0 37.0-47.0 % Mean Corpuscular Volume 93.3 80.0-98.0 fL Mean Corpuscular Hemoglobin 31.2 27.0-33.0 pg Mean Corpuscular HGB Conc 33.5 31.0-35.0 g/dl Red Cell Distribution Width 12.2 11.0-16.0 % Platelet Count 260 160-400 X10*3/uL Mean Platelet Volume 10.0 9.4-12.3 fL NRBC Pct Auto 0.0 0.0-0.2 /100WBC NRBC Abs Auto 0.000 0.0-0.012 X10*3/uL Neutrophils Percent Manual 92 45-73 % Band Neutrophils Percent 2 3-5 % Lymphocytes Percent Manual 5 20-40 % Basophils Percent Manual 1 0-2 % Neutrophils Absolute Manual 21.8 2.0-8.3 X10*3/uL Lymphocytes Absolute Manual 1.2 1.2-4.9 X10*3/uL Basophils Abs Manual 0.2 0.0-0.2 X10*3/uL Hypersegmented Neutrophils PRESENT Platelet Estimate NORMAL NORMAL Platelet Morphology Comment NORM RBC Morphology NORMAL Comprehensive Met. Panel Reviewed date:05/05/2024 05:01:05 PM Interpretation: Performing Lab:[facility], [address] [place] [phone] Notes/Report: Sodium 139 135-145 mmol/L Potassium 4.0 3.3-5.1 mmol/L Slight Hemolysis.Interpret result with caution. Chloride 102 96-108 mmol/L Carbon Dioxide 22 22-29 mmol/L Anion Gap 19 12-20 Blood Urea Nitrogen 27 9-16 mg/dL Creatinine 1.29 0.5-1.4 mg/dL Creatinine Clr Calc Pharmacy 23.8 Provided height and weight: 154.94 cm, 44.9 kg. eGFR (calculated from the MDRD study equation) and eCrCl (calculated from the Cockcroft-Gault equation) are based on different parameters and may not yield comparable results. If eCrCl result is absurd, please check patient's height/weight. Estimated Glomerular Filt Rate 40 Chronic Kidney Disease: Estimated GFR < 60 mL/min/1.73m2 Severe Kidney Disease: Estimated GFR < 15 mL/min/1.73m2 Glucose Random 164 60-115 mg/dL Calcium 10.1 8.4-10.2 mg/dL Bilirubin Total 0.5 0.0-1.0 mg/dL Aspartate Amino Transferase 32 5-31 U/L Slight Hemolysis.Interpret result with caution. Alanine Aminotransferase 14 0-31 U/L Total Protein 8.6 6.5-8.0 g/dL Albumin Level 4.6 3.5-5.0 g/dL Alkaline Phosphatase 73 39-117 U/L Lactic Acid Reviewed date:05/05/2024 04:56:13 PM Interpretation: Performing Lab:[facility], [address] [place] [phone] Notes/Report: Lactic Acid 2.6 0.5-2.0 mmol/L Critical value for LACTIC: Results called to and read back by: SHAYY Person calling: GWEN Date: 05-05-24 Time: 1327 Pathology Reviewed date:05/09/2024 12:18:55 PM Interpretation: Performing Lab:[facility], [address] [place] [phone] Notes/Report: -- ---- Name: Noemí Myers Age/Sex: 83/F : 1940 Unit#: [id number] Attend Dr: Nyla Bowers MD Re05/05/24 Status : ADM IN Location: [place] [address]1 Disch: -- ---- SPEC : [id number] RECD: 05/06/24 STATUS: MARCO ANTONIO RUTH NUM: [id number] MAX: 05/05/24 [facility] DR: Nyla Bwoers MD ENTERED: 05/06/24 12 SP TYPE: Surgical OTHR DR: Jacob Bailey MD ORDERED: Gross Micro L5 Diagnosis Small bowel, resection: Small bowel with extensive ischemic injury; negative for malignancy. See comment. Comment: The margins are viable without evidence of significant ischemic injury. Clinical History Pre-Op Dx: Nausea an d vomiting Post-Op Dx: Incarcerated hernia Microscopic Description Microscopic sections reviewed. Material Received Small bowel Gross Description Received in formalin labeled ?small bowel? is a 12.0 cm in length segment of small bowel which ranges from 1. 5 to 2.2 cm in diameter which is stapled closed at the margins of resection and displa ys a small amount of attached focally congested and hemorrhagic acevedo- yellow and purple-maroon mesenteric adipose tissue. The serosa is smooth and glistening, miller-pink and red-maroon. In the mid segment, at a point located 3.0 cm from 1 of the margins of resection and 5.0 cm from the opposing margin of resection there is a 3.5 cm in length dilated segme nt with a slight suggestion of stricture on either side. The serosa is congested and hemorrhagic, red-maroon. There is no evidence of obstruction or perforation. Upon opening the mucosa extending to the margins of resection is velvety, erythematous miller and miller-pink. The lumen ranges from 3.0-4.5 cm in circumference with no evidence of obstruction. The mucosa in the central dilated segment is congested and hemorrhagic, red- maroon extending to a point 1.0 cm from the nearest margin of resection. Sectioning reveals transmural congestio n and hemorrhage with the attenuated wall ranging from 0.1-0.5 cm in thickness. No erosions, ulcers, polyps or diverticula are identified. There are no adhesions. Sectionin g the mesenteric adipose tissue reveals focal congestion. Rough Rounder sections are submitted labeled as follows: A1 sections perpendicular to the margins of resection; A2 sections at the transition zone furthest from one of the margins of resection; A3 sections from the dilated congested and hemorrhagic segment; A4 sections at the transition zone nearest the opposing margin of resection; A5 sections of mesenteric adipose tissue. CONTINUED ON NEXT PAGE -- ---- Name: Noemí Myers Age/Sex: 83/F : 1940 Unit#: [id number] Attend Dr: Nyla Bowers MD Re05/05/24 Status : ADM IN Location: [place] [address]1 Disch: -- ---- SPEC : [id number] RECD: 05/06/24 STATUS: MARCO ANTONIO RUTH NUM: [id number] MAX: 05/05/24 [facility] DR: Nyla Bowers MD ENTERED: 05/06/24 SP TYPE: Surgical OTHR DR: Jacob Bailey MD ORDERED: Gross Micro L5 Gross Description (Continued) CEDS Copies To: Jacob Bailey MD [facility] [address] [place] [address] [facility] [address] [place] [address] ?[place] [address] -- ---- Signed (signature on file) Carlos Joiner MD 05/08/24 1102 -- ---- END OF REPORT SLIDE REVIEW Reviewed date:05/05/2024 04:58:58 PM Interpretation: Performing Lab:[facility], [address] [place] [phone] Notes/Report: SLIDE REVIEW MANUAL DIFF SARS-CoV2/FLU/RSV Reviewed date:05/05/2024 04:56:31 PM Interpretation: Performing Lab:[facility], [address] [place] [phone] Notes/Report: Influenza A PCR NEGATIVE Negative Influenza B PCR NEGATIVE Negative Resp Syncy Virus RNA Qual PCR NEGATIVE Negative SARS COV2 PCR INHOUSE NEGATIVE Negative All test results must be correlated with clinical findings. Negative results do not preclude SARS-CoV2, influenza A virus, influenza B virus and/or RSV infection and should not be used as the sole basis for treatment or other patient management decisions. Negative results must be combined with clinical observations, patient history, and epidemiological information. This test has not been evaluated for monitoring treatment of infection. This test has been authorized by the FDA under an Emergency Use Authorization (EUA) for use by authorized laboratories. Testing performed on the [employer] GeneXpert utilizing real-time RT-PCR. All SARS CoV2 and positive influenza A/B results are reported to [facility]. Blood Culture (First) Reviewed date:05/10/2024 04:22:29 PM Interpretation: Performing Lab:[address] [phone] Notes/Report: Blood Culture (First) No growth after 5 days. Blood Culture (Second) Reviewed date:05/10/2024 04:22:37 PM Interpretation: Performing Lab:[address] [phone] Notes/Report: Blood Culture (Second) No growth after 5 days. Lactic Acid-LAB USE ONLY Reviewed date:05/05/2024 04:55:56 PM Interpretation: Performing Lab:[address] [phone] Notes/Report: Lactic Acid-LAB USE ONLY 2.6 0.5-2.0 mmol/L Critical value for test(s):LACTIC ACID Results called to and read back by: KATHIE Person calling: NGUYENQ Date:05/05/24 Time:1609 UA ClnCatch+Micro w/rflx Cul t Reviewed date:05/05/2024 05:00:46 PM Interpretation: Performing Lab:[facility], [address] [place] [phone] Notes/Report: Urine, Clean Catch Color Urine Yellow Appearance Urine Cloudy PH 5.5 5.0-9.0 Glucose Urine UA Negative Negative mg/dL Urine Blood Negative Negative Specific Eugene - Urine >= 1.030 1.005-1.025 Urine Protein 100 (2+) Neg-Trace mg/dL Urine Ketones Trace Negative mg/dL Nitrite Urine Negative Negative Leukocyte Esterase Urine Negative Negative RBC Urine 0-2 0-2 /HPF WBC Urine 0-5 0-5 /HPF Squamous Epithelial Cell Urine 3-5 0-2 /HPF Bacteria Urine None Seen None Seen Hyaline Casts Urine 6-10 0-2 /LPF Lactic Acid-LAB USE ONLY Reviewed date:05/06/2024 05:10:11 PM Interpretation: Performing Lab:[facility], [address] [place] [phone] Notes/Report: NOT DRAWN BY ED STAFF,PATIENT TRANSFERED TO [address] 2057 Lactic Acid-LAB USE ONLY 2.3 0.5-2.0 mmol/L Critical lactic acid sent by a secure message and confirmed by 05/05/24 AT 2123 Tech: NGUYENQ CT abdomen pelvis wo con Reviewed date:05/05/2024 04:57:32 PM Interpretation: Performing Lab: Notes/Report: [address] [address] [address] Scan Report Signed with Antoni Patient: Noemí Myers MR#: [id number] : 1940 Acct:[id number] Age/Sex: 83 / F ADM Date: 05/05/24 Loc: .ED Attending Dr: Ordering Physician: Tootie Dave Date of Service: 05/05/24 Procedure(s): CT abdomen pelvis wo IV con Accession Number(s): [id number] cc: Jacob Bailey MD; Tootie Dave Report Number: [id number]: Total DLP = 283.00 mGy-cm ADDENDUM This document has been electronically signed by: Fran Link MD on 05/05/2024 11:52:48 ADDENDUM: This report was discussed with Tenzin Sommers on May 05, 2024 12:03:00 EST. This document has been electronically signed by: Korin Contreras on 05/05/2024 12:03:41 Addendum Dictated By: Fran Link MD Addendum Signed By: <Electronically signed by Fran Link MD in OV> 05/05/24 1204 Addendum Cosigned By: DD/ TD/TT: 05/05/24 CLINICAL HISTORY: N V, bowel obstruction CT abdomen without IV contrast. Comparison: Current KUB. No prior imaging. Findings: Marked distention of the stomach and markedly dilated small bowel with right inguinal hernia containing a small bowel loop and ascites concerning for site of obstruction . Severe narrowing of the herniated segment at the mouth with the more distal small bowel decompressed. Ingested tablets in the distal stomach. Mild ascites concerning for peritonitis including ascites in the hernia sac. Distal most small bowel loops decompressed. Colon nondilated. Limited assessment of the appendix. No clearly abnormal appendix. Diverticulosis without appreciable diverticulitis. No acute process evident in the lung bases. Heart size normal. Equivocal small hiatal hernia versus reflux. Liver, gallbladder, biliary tree, pancreas, spleen, adrenals and kidneys intact. Calcified nonaneurysmal aorta. No pathologic appearing adenopathy. Decompressed urinary bladder. Pelvic viscera intact. Diffuse degenerative changes lumbar spine. No acute or aggressive appearing bone lesion. Soft tissues intact. Impression: High-grade small bowel obstruction appearing related to right inguinal hernia as detailed. Mild ascites concerning for peritonitis. No apparent free air. No pneumatosis. Other findings as noted. Surgical consultation advised. This document has been electronically signed by: Fran Link MD on 05/05/2024 11:52:48 Dictated By: Fran Link MD Signed By: <Electronically signed by Fran Link MD in OV> 05/05/241153 DD/ 51 TD/TT: 05/05/241151 [employer] Enamel Installer: [address] [address] [address] Scan Report Signed with Addenda Patient: Noemí Myers MR#: [id number] : 1940 Acct:[id number] Age/Sex: 83 / F ADM Date: 05/05/24 Loc: HO.ED Attending Dr: Ordering Physician: Tootie Dave Date of Service: 05/05/24 Procedure(s): CT abdomen pelvis wo IV con Accession Number(s): [id number] cc: Jacob Bailey MD; Tootie Dave Report Number: [id number]: Total DLP = 283.00 mGy-cm ADDENDUM This document has be en electronically signed by: Fran Link MD on 05/05/2024 11:52:48 ADDENDUM: This report was discussed with Tenzin Sommers on May 05, 2024 12:03:00 EST. This document has be en electronically signed by: Korin Contreras on 05/05/2024 12:03:41 Addendum Dictated By : Fran Link MD Addendum Signed By: <Electronically signed by Fran Link MD in OV> 05/05/24 120 Addendum Cosigned By: DD/ TD/TT: 05/05/24 CLINICAL HISTORY: N V, bowel obstruction CT abdomen without I V contrast. Comparison: Current KUB. No prior imaging. Findings: Marked distention of the stomach and markedly dilated small bowel with right inguinal herni a containing a small bowel loop and ascites concerning for site of obstruction . Severe narrowing of the herniated segment at the mouth with the more distal small bowel decompressed. Ingested tablets in the distal stomach. Mild ascites concerning for peritonitis including ascites in the hernia sac. Distal most sma ll bowel loops decompressed. Colon nondilated. Limited assessment of the appendix. No clearly abnormal appendix. Diverticulosis witho ut appreciable diverticulitis. No acute process evident in the lung bases. Heart size normal. Equivocal small hiatal hernia versus reflux. Liver, gallbladder, biliary tree, pancreas, spleen, adrenals and kidneys intact. Calcified nonaneurysmal aorta. No pathologic appearing adenopathy. Decompressed urinary bladder. Pelvic viscera intact. Diffuse degenerative changes lumbar spine. No acute or aggressive appearing bone lesio n. Soft tissues intact. Impression: High-grade small bow el obstruction appearing related to right inguinal hernia as detailed. Mild ascites concerning for peritonitis. No apparent free air. No pneumatosis. Other findings as noted. Surgical consultation advised. This document has be en electronically signed by: Fran Link MD on 05/05/2024 11:52:48 Dictated By: Fran Link MD Signed By: <Electronically signed by Fran Link MD in OV> 05/05/24 1154 DD/ 1152 TD/TT: 05/05/24 115 Porcelain Enamel Installer: MARCELLUS ROCA Reviewed date:05/05/2024 04:57:54 PM Interpretation: Performing Lab: Notes/Report: [address] [address] XRay Report Signed with Addenda Patient: Noemí Myers MR#: [id number] : 1940 Acct:[id number] Age/Sex: 83 / F ADM Date: 05/05/24 Loc: .ED Attending Dr: Ordering Physician: Generic ED Physician Date of Service: 05/05/24 Procedure(s): XR ABELINO Accession Number(s): [id number] cc: Jacob Bailey MD; Generic ED Physician ADDENDUM This document has been electronically signed by: Fran Link MD on 05/05/2024 10:34:29 ADDENDUM: This report was discussed with EVERARDO Dey on May 05, 2024 10:41:00 EST. This document has been electronically signed by: Aixa Caldera on 05/05/2024 10:41:44 Addendum Dictated By: Fran Link MD Addendum Signed By: <Electronically signed by Fran Link MD in OV> 05/05/24 1042 Addendum Cosigned By: DD/ TD/TT: 05/05/24 CLINICAL HISTORY: constipation Abdomen one view Findings: Stacked dilated small bowel loops in the low abdomen to pelvis concerning for small bowel obstruction. Paucity of bowel gas in the upper abdomen. Perhaps minimal colonic gas. Lung bases clear. Advanced lumbar spondylosis with levoscoliosis. Calcification right hemiabdomen suggesting renal stone although gallstone not excluded. Impression: Bowel gas pattern suspicious for small bowel obstruction. This document has been electronically signed by: Fran Link MD on 05/05/2024 10:34:29 Dictated By: Fran Link MD Signed By: <Electronically signed by Fran Link MD in OV> 05/05/241034 DD/ 33 TD/TT: 05/05/241033 Por[employer] Enamel Installer: [place] [address] XRay Report Signed with Addenda Patient: Noemí Myers MR#: [id number] : 1940 Acct:[id number] Age/Sex: 83 / F ADM Date: 05/05/24 Loc: .ED Attending Dr: Ordering Physician: Generic ED Physician Date of Service: 05/05/24 Procedure(s): XR KUB Accession Number(s): [id number] cc: Jacob Bailey MD; Generic ED Physician ADDENDUM This document has be en electronically signed by: Fran Link MD on 05/05/2024 10:34:29 ADDENDUM: This report was discussed with EVERARDO Dey on May 05, 2024 10:41:00 EST. This document has be en electronically signed by: Aixa Caldera on 05/05/2024 10:41:44 Addendum Dictated By : Fran Link MD Addendum Signed By: <Electronically signed by Fran Link MD in OV> 05/05/241041 Addendum Cosigned By: DD/ TD/TT: 05/05/24 CLINICAL HISTORY: constipation Abdomen one view Findings: Stacked dilated smal l bowel loops in the low abdomen to pelvis concerning for small bowel obstruction. Paucity of bowel gas in the upper abdomen. Perhaps minimal colonic gas. Lung bases clear. Advanced lumbar spondylosis with levoscoliosis. Calcification right hemiabdomen suggesting renal stone although gallstone not excluded. Impression: Bowel ga s pattern suspicious for small bowel obstruction. This document has be en electronically signed by: Fran Link MD on 05/05/2024 10:34:29 Dictated By: Fran Link MD Signed By: <Electronically signed by Fran Link MD in OV> 05/05/24 1035 DD/ 1034 TD/TT: 05/05/24 1034 Porcelain Enamel Installer: Complete Blood Count Auto Di ff Reviewed date:05/06/2024 05:09:54 PM Interpretation: Performing Lab:[facility], [address] [place] [phone] Notes/Report: White Blood Count 13.7 4.8-10.8 X10*3/uL Red Blood Count 3.99 4.20-5.50 X10*6/uL Hemoglobin 12.7 12.0-16.0 g/dl Hematocrit 37.7 37.0-47.0 % Mean Corpuscular Volume 94.5 80.0-98.0 fL Mean Corpuscular Hemoglobin 31.8 27.0-33.0 pg Mean Corpuscular HGB Conc 33.7 31.0-35.0 g/dl Red Cell Distribution Width 12.0 11.0-16.0 % Platelet Count 197 160-400 X10*3/uL Mean Platelet Volume 10.6 9.4-12.3 fL Neutrophils Percent Auto 90.5 45-73 % Imm Gran Pct Auto 0.3 0.0-0.4 % Lymphocytes Percent Auto 3.3 20-40 % Monocytes Percent Auto 5.1 2-11 % Eosinophils Percent Auto 0.4 0-4 % Basophils Percent Auto 0.4 0-2 % NRBC Pct Auto 0.0 0.0-0.2 /100WBC Neutrophils Absolute Auto 12.4 2.0-8.3 x10*3/u L Imm Gran Abs Auto 0.04 0.00-0.03 X10*3/uL Lymphocytes Absolute Auto 0.5 1.2-4.9 X10*3/u L Monocytes Absolute Auto 0.7 0.1-1.2 X10*3/uL Eosinophils Absolute Auto 0.1 0.0-0.4 X10*3/u L Basophils Absolute Auto 0.1 0.0-0.2 X10*3/uL NRBC Abs Auto 0.000 0.0-0.012 X10*3/uL White Blood Count 13.7 4.8-10.8 X10*3/uL Red Blood Count 3.99 4.20-5.50 X10*6/uL Hemoglobin 12.7 12.0-16.0 g/dl Hematocrit 37.7 37.0-47.0 % Mean Corpuscular Volume 94.5 80.0-98.0 fL Mean Corpuscular Hemoglobin 31.8 27.0-33.0 pg Mean Corpuscular HGB Conc 33.7 31.0-35.0 g/dl Red Cell Distribution Width 12.0 11.0-16.0 % Platelet Count 197 160-400 X10*3/uL Mean Platelet Volume 10.6 9.4-12.3 fL Neutrophils Percent Auto 90.5 45-73 % Imm Gran Pct Auto 0.3 0.0-0.4 % Lymphocytes Percent Auto 3.3 20-40 % Monocytes Percent Auto 5.1 2-11 % Eosinophils Percent Auto 0.4 0-4 % Basophils Percent Auto 0.4 0-2 % NRBC Pct Auto 0.0 0.0-0.2 /100WBC Neutrophils Absolute Auto 12.4 2.0-8.3 x10*3/u L Imm Gran Abs Auto 0.04 0.00-0.03 X10*3/uL Lymphocytes Absolute Auto 0.5 1.2-4.9 X10*3/u L Monocytes Absolute Auto 0.7 0.1-1.2 X10*3/uL Eosinophils Absolute Auto 0.1 0.0-0.4 X10*3/u L Basophils Absolute Auto 0.1 0.0-0.2 X10*3/uL NRBC Abs Auto 0.000 0.0-0.012 X10*3/uL CORRECTED REPORT CORRECTED REPORT Basic Metabolic Panel Reviewed date:05/06/2024 05:16:42 PM Interpretation: Performing Lab:[facility], [address] [place] [phone] Notes/Report: Sodium 139 135-145 mmol/L Potassium 3.9 3.3-5.1 mmol/L Chloride 106 96-108 mmol/L Carbon Dioxide 23 22-29 mmol/L Anion Gap 14 12-20 Blood Urea Nitrogen 23 9-16 mg/dL Creatinine 0.94 0.5-1.4 mg/dL Creatinine Clr Calc Pharmacy 32.6 Provided height and weight: 154.94 cm, 44.9 kg. eGFR (calculated from the MDRD study equation) and eCrCl (calculated from the Cockcroft-Gault equation) are based on different parameters and may not yield comparable results. If eCrCl result is absurd, please check patient's height/weight. Estimated Glomerular Filt Rate 57 Chronic Kidney Disease: Estimated GFR < 60 mL/min/1.73m2 Severe Kidney Disease: Estimated GFR < 15 mL/min/1.73m2 Glucose Random 160 60-115 mg/dL Calcium 8.2 8.4-10.2 mg/dL SLIDE REVIEW Reviewed date:05/06/2024 05:10:03 PM Interpretation: Performing Lab:[facility], [address] [place] [phone] Notes/Report: SLIDE REVIEW VERIFIED Hold Lav - Possible Hematolo gy Reviewed date:05/08/2024 05:26:20 PM Interpretation: Performing Lab:[facility], [address] [place] [phone] Notes/Report: Hold Lav - Possible Hematology SEE NOTE Specimen will be held untested for 8 hours. Call Hematology if testing is desired. Basic Metabolic Panel Fastin g Reviewed date:05/08/2024 05:30:24 PM Interpretation: Performing Lab:[facility], [address] [place] [phone] Notes/Report: Sodium 137 135-145 mmol/L Potassium 3.6 3.3-5.1 mmol/L Chloride 108 96-108 mmol/L Carbon Dioxide 18 22-29 mmol/L Anion Gap 15 12-20 Blood Urea Nitrogen 18 9-16 mg/dL Creatinine 0.71 0.5-1.4 mg/dL Creatinine Clr Calc Pharmacy 43.3 Provided height and weight: 154.94 cm, 44.9 kg. eGFR (calculated from the MDRD study equation) and eCrCl (calculated from the Cockcroft-Gault equation) are based on different parameters and may not yield comparable results. If eCrCl result is absurd, please check patient's height/weight. Estimated Glomerular Filt Rate > 60 Chronic Kidney Disease: Estimated GFR < 60 mL/min/1.73m2 Severe Kidney Disease: Estimated GFR < 15 mL/min/1.73m2 Glucose Fasting 77 60-99 mg/dL Calcium 8.4 8.4-10.2 mg/dL Phosphorus Reviewed date:05/08/2024 05:30:08 PM Interpretation: Performing Lab:[facility], [address] [place] [phone] Notes/Report: Phosphorus 2.2 2.7-4.5 mg/dL Magnesium Reviewed date:05/08/2024 05:26:04 PM Interpretation: Performing Lab:[facility], [address] [place] [phone] Notes/Report: Magnesium 1.8 1.6-2.6 mg/dL Albumin Level Reviewed date:05/08/2024 05:30:31 PM Interpretation: Performing Lab:[facility], [address] [place] [phone] Notes/Report: Albumin Level 2.8 3.5-5.0 g/dL Triglycerides Reviewed date:05/08/2024 05:30:16 PM Interpretation: Performing Lab:[facility], [address] [place] [phone] Notes/Report: Triglycerides 122 <150 mg/dL Desirable Triglyceride: less than 150 mg/dL Borderline High Triglyceride 150-199 mg/dL High Triglyceride: 200-499 mg/dL Very High Triglyceride: greater than or equal to 5OO mg/dL Basic Metabolic Panel Reviewed date:05/09/2024 12:20:02 PM Interpretation: Performing Lab:[facility], [address] [place] [phone] Notes/Report: Sodium 136 135-145 mmol/L Potassium 4.5 3.3-5.1 mmol/L Slight Hemolysis.Interpret result with caution. Chloride 110 96-108 mmol/L Carbon Dioxide 18 22-29 mmol/L Anion Gap 13 12-20 Blood Urea Nitrogen 19 9-16 mg/dL Creatinine 0.69 0.5-1.4 mg/dL Creatinine Clr Calc Pharmacy 44.5 Provided height and weight: 154.94 cm, 44.9 kg. eGFR (calculated from the MDRD study equation) and eCrCl (calculated from the Cockcroft-Gault equation) are based on different parameters and may not yield comparable results. If eCrCl result is absurd, please check patient's height/weight. Estimated Glomerular Filt Rate > 60 Chronic Kidney Disease: Estimated GFR < 60 mL/min/1.73m2 Severe Kidney Disease: Estimated GFR < 15 mL/min/1.73m2 Glucose Random 96 60-115 mg/dL Calcium 8.1 8.4-10.2 mg/dL Phosphorus Reviewed date:05/09/2024 12:19:44 PM Interpretation: Performing Lab:[facility], [address] [place] [phone] Notes/Report: Phosphorus 1.7 2.7-4.5 mg/dL Magnesium Reviewed date:05/09/2024 12:20:57 PM Interpretation: Performing Lab:[address] [phone] Notes/Report: Magnesium 2.1 1.6-2.6 mg/dL Albumin Level Reviewed date:05/09/2024 12:19:53 PM Interpretation: Performing Lab:[address] [phone] Notes/Report: Albumin Level 3.0 3.5-5.0 g/dL Basic Metabolic Panel Reviewed date:05/10/2024 12:35:02 PM Interpretation: Performing Lab:[facility], [address] [place] [phone] Notes/Report: Sodium 139 135-145 mmol/L Potassium 3.7 3.3-5.1 mmol/L Chloride 108 96-108 mmol/L Carbon Dioxide 23 22-29 mmol/L Anion Gap 12 12-20 Blood Urea Nitrogen 17 9-16 mg/dL Creatinine 0.69 0.5-1.4 mg/dL Creatinine Clr Calc Pharmacy 44.5 Provided height and weight: 154.94 cm, 44.9 kg. eGFR (calculated from the MDRD study equation) and eCrCl (calculated from the Cockcroft-Gault equation) are based on different parameters and may not yield comparable results. If eCrCl result is absurd, please check patient's height/weight. Estimated Glomerular Filt Rate > 60 Chronic Kidney Disease: Estimated GFR < 60 mL/min/1.73m2 Severe Kidney Disease: Estimated GFR < 15 mL/min/1.73m2 Glucose Random 136 60-115 mg/dL Calcium 8.1 8.4-10.2 mg/dL Phosphorus Reviewed date:05/10/2024 12:34:49 PM Interpretation: Performing Lab:[facility], [address] [place] [phone] Notes/Report: Phosphorus 2.7 2.7-4.5 mg/dL Magnesium Reviewed date:05/10/2024 12:34:42 PM Interpretation: Performing Lab:[facility], [address] [place] [phone] Notes/Report: Magnesium 1.9 1.6-2.6 mg/dL Albumin Level Reviewed date:05/10/2024 12:34:35 PM Interpretation: Performing Lab:[facility], [address] [place] [phone] Notes/Report: Albumin Level 2.6 3.5-5.0 g/dL Basic Metabolic Panel Reviewed date:05/12/2024 03:22:34 PM Interpretation: Performing Lab:[facility], [address] [place] [phone] Notes/Report: Sodium 137 135-145 mmol/L Potassium 3.7 3.3-5.1 mmol/L Chloride 106 96-108 mmol/L Carbon Dioxide 24 22-29 mmol/L Anion Gap 11 12-20 Blood Urea Nitrogen 15 9-16 mg/dL Creatinine 0.68 0.5-1.4 mg/dL Creatinine Clr Calc Pharmacy 45.1 Provided height and weight: 154.94 cm, 44.9 kg. eGFR (calculated from the MDRD study equation) and eCrCl (calculated from the Cockcroft-Gault equation) are based on different parameters and may not yield comparable results. If eCrCl result is absurd, please check patient's height/weight. Estimated Glomerular Filt Rate > 60 Chronic Kidney Disease: Estimated GFR < 60 mL/min/1.73m2 Severe Kidney Disease: Estimated GFR < 15 mL/min/1.73m2 Glucose Random 98 60-115 mg/dL Calcium 8.2 8.4-10.2 mg/dL Phosphorus Reviewed date:05/12/2024 03:22:24 PM Interpretation: Performing Lab:[facility], [address] [place] [phone] Notes/Report: Phosphorus 3.0 2.7-4.5 mg/dL Magnesium Reviewed date:05/12/2024 03:22:15 PM Interpretation: Performing Lab:[facility], [address] [place] [phone] Notes/Report: Magnesium 1.8 1.6-2.6 mg/dL Albumin Level Reviewed date:05/12/2024 03:22:05 PM Interpretation: Performing Lab:[facility], [address] [place] [phone] Notes/Report: Albumin Level 2.7 3.5-5.0 g/dL Reason For Referral Reason please call her emily anneer to book appt suzette [phone] please eval and treat for memory loss Diagnosis 1 Memory loss (R41.3) Referral Organization Jacob Bailey MD Referring Provider First Name Jacob Referring Provider Last Name Lynn Referring Provider Speciality Internal M edicine Referred Provider JACOB VELASCO Referred Provider Specialty Neurology General Notes Aranza Burton 0 10/03/2024 11:27:40 AM > referral info faxed, Aranza Burton 10/04/2024 10:46:57 AM >will not e using this referral Dt. [facility] doesn't take her insurnace. referral marked addressed Referral Priority Routine Reason memory loss please make appt with her daughter Suzette [phone] Diagnosis 1 Memory loss (R41.3) Referral Organization Jacob Bailey MD Referring Provider First Name Jacob Referring Provider Last Name Lnyn Referring Provider Speciality Internal M edicine Referred Provider Meryl Corley Referred Provider Specialty Neurology General Notes Aranza Burton 0 10/04/2024 10:52:53 AM > referral info faxed, Aranza Burton 10/17/2024 03:27:15 PM > was told to call back next week appt is being worked on, Aranza Burton 11/11/2024 09:13:32 AM >patient is aware of appt Referral Priority Routine Referral Appointment Date 01/06/2025 Medications Medication SIG (Take, Route, Frequency, Duration) Notes Start Date End Date Status Tylenol 325 MG 1 tablet as needed Orally every 6 hrs Active Magnesium 400 MG as directed Orally Active Colace 100 MG 1 capsule as needed Orally Once a day Not-Taking Ibuprofen 200 MG 1 tablet with food o r milk as needed Orally Three times a day Not-Taking LORazepam 0.5 MG 1 tablet as needed Orally every 12 hours for 7 days 06/26/2017 Not-Taking Metoprolol Succinate ER 50 MG take 1 tablet by mouth every day Orally Once a day Active Immunizations Vaccine Route Administration Date Status Comme nts SARS-COV-2 Moderna Unknown 04/05/2021 Administered SARS-COV-2 Moderna Unknown 04/05/2021 Administered Covid Vaccine Unknown 07/13/2020 Administered [employer] Fluarix Quadrivalent Unknown 01/25/2016 Refused PPSV23 (Pnemovax) Unknown 02/23/2016 Refused Fluarix Quadrivalent Unknown 03/13/2017 Refused PPSV23 (Pnemovax) Unknown 03/20/2017 Refused TDaP Unknown 03/20/2017 Refused Fluarix Quadrivalent Unknown 01/02/2018 Refused Influenza High Dose Unknown 01/28/2019 Refused PPSV23 (Pnemovax) Unknown 01/28/2019 Refused Prevnar 13 Unknown 01/28/2019 Refused Fluarix Quadrivalent Unknown 03/15/2021 Refused Influenza High Dose Unknown 12/20/2021 Refused Influenza High Dose Unknown 02/01/2022 Refused Social History Tobacco Use: Social History Observation Description Date Details (start date - stop date) Never Smoker NA - NA Tobacco Use/Smoking Question Answer Notes Patient is a nonsmoker Additional Findings: Tobacco Non-User Cu rrent non-smoker, currently using no form of tobacco Alcohol Screen Question Answer Notes Did you have a drink containing alcohol in the p ast year? No Points 0 Interpretation Negative Problems Problem Type SNOMED Code ICD Code Onset Dates Problem Status W/U Status Risk Notes Problem Blood chemistry abnormal (916182698) Elevated BUN (R79.9) Active confirmed Problem 62479694 Essential hypertension (I10) Active confirmed Problem 10785427 Memory loss (R41.3) Active confirmed Problem 789832984 Leukocytosis, unspecified type (D72.829) Active confirmed Problem Sciatica (25088417) Right sided sciatica (M54.31) Active confirmed Problem 59322064 Sciatica of righ t side (M54.31) Active confirmed Problem 653419492 MCI (mild cognitive impairment) (G31.84) Active confirmed Problem 932712539 Malignant neoplasm of upper-inner quadrant of left female breast, 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 Vital Signs Blood pressure diastolic 84 mm Hg 08/05/2024 [place] ght is up 2 pounds since 05-24-24 Height 60 in 08/05/2024 weight is up 2 pounds since 05-24-24 Blood pressure systolic 160 mm Hg 08/05/2024 [place] ht is up 2 pounds since 05-24-24 Weight 98 lbs 08/05/2024 weight is up 2 pounds since 05-24-24 BMI 19.14 kg/m2 08/05/2024 weight is up 2 pounds since 05-24-24 Encounters Encounter Location Date Provider Diagnosis Jacob Bailey MD [address] [place] [address] [id number] 11/16/2023 Jacob Bailey Blood tests for routine general physical examination Z00.00 ; Essential hypertension I10 ; Elevated BUN R79.9 and Leukocytosis, unspecified type D72.829 Jacob Bailey MD [address] [place] [address] [id number] 11/15/2024 Jacob Bailey Blood tests for routine general physical examination Z00.00 ; Essential hypertension I10 ; Elevated BUN R79.9 and Leukocytosis, unspecified type D72.829 Jacob Bailey MD [address] [place] [address] [id number] 11/23/2023 Jacob Bailey Malignant neoplasm o f upper-inner quadrant of left female breast, unspecified estrogen receptor status C50.212 ; Annual physical exam Z00.00 ; Essential hypertension I10 ; Memory loss R41.3 and Depression screening Z13.31 Jacob Bailey MD [address] [place] [address] [id number] 03/04/2024 Jacob Bailey Essential hypertension I10 Jacob Bailey MD [address] [place] [address] [id number] 05/24/2024 Jacob Bailey Other complete intestinal obstruction K56.691 and Essential hypertension I10 Jacob Bailey MD [address] [place] [address] [id number] 08/05/2024 Jacob Bailey Essential hypertension I10 ; MCI (mild cognitive impairment) G31.84 and Malignant neoplasm of upper-inner quadrant of left female breast, unspecified estrogen receptor status C50.212 Jacob Bailey MD [address] [place] [address] [id number] 01/09/2024 Jacob Bailey Essential hypertension I10 Jacob Bailey MD [address] [place] [address] [id number] 05/16/2024 Jacob Bailey MD [address] [place] [address] [id number] 10/01/2024 Jacob Bailey Assessments Encounter Date Diagnosis (ICD Code) Assessment Notes Treatment Notes Treatment Clinical Notes Section Notes 11/16/2023 Blood tests for routine general physical examination (ICD-10 - Z00.00) 11/16/2023 Essential hypertension (ICD-10 - I10) 11/15/2024 Blood tests for routine general physical examination (ICD-10 - Z00.00) b 11/23/2023 Malignant neoplasm of upper-inner quadrant of left female breast, 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 will continue current regiment 05/24/2024 Other complete intestinal obstruction (ICD-10 - K56.691) doing well after hernia causing obstruction 08/05/2024 Essential hypertension (ICD-10 - I10) doing well, will continue current regiment/ paiient get very anxious at times daughter thinks there is confusion will observe 01/09/2024 Essential hypertension (ICD-10 - I10) 11/16/2023 Elevated BUN (ICD-10 - R79.9) 11/15/2024 Essential hypertension (ICD-10 - I10) b 11/23/2023 Essential hypertension (ICD-10 - I10) well controlled, will continue current regiment 05/24/2024 Essential hypertension (ICD-10 - I10) doing well 08/05/2024 MCI (mild cognitive impairment) (ICD-10 - G31.84) stable. 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 Panel Fast 5 Lipid Panel 11/15/2024 PSA,Total (Free>4and<10) 11/15/2024 MM screening mammo BI 07/14/2022 UA ClnCatch+Micro w/rflx Cult 11/15/2024 Next Appt Details Provider Name:Jacob ordoñez, 11/25/2024 03:30:00 PM, [address] [place] [address], [address], [place], [place], [id number], Insurance Providers Payer Name Payer Address Payer Phone Subscriber Number Group Number Insured Name Patient Relationship to Insured Coverage Start Date Coverage End Date [facility] are [employer] [address] [address] [place] [address] [id number] NOEMÍ WALKER AM Self - patient is the insured [employer] [address] [place] [address] [id number] NOEMÍ WALKER AM Self - patient is the insured Medical (General) History Medical History History ICD Code colonscopy refused
[2024-11-15 11:40] LABS: MANUAL DIFF FLAG NO
[2024-11-15 11:59] LABS: Hematocrit 39.1 % (37.0-47.0); Hemoglobin 13.2 g/dl (12.0-16.0); Imm Gran Abs Auto 0.02 X10*3/uL (0.00-0.03); Imm Gran Pct Auto 0.3 % (0.0-0.4); Lymphocytes Absolute Auto 2.1 X10*3/uL (1.2-4.9); Mean Corpuscular HGB Conc 33.8 g/dl (31.0-35.0); Mean Corpuscular Hemoglobin 32.0 pg (27.0-33.0); Mean Corpuscular Volume 94.7 fL (80.0-98.0); NRBC Abs Auto 0.000 X10*3/uL (0.0-0.012); NRBC Pct Auto 0.0 /100WBC (0.0-0.2); Platelet Count 223 X10*3/uL (160-400); Red Blood Count 4.13 X10*6/uL (4.20-5.50); White Blood Count 6.0 X10*3/uL (4.8-10.8)
[2024-11-15 12:00] LABS: Appearance Urine Clear; Glucose Urine UA Negative (Negative); PH 7.0 (5.0-9.0); Specific Gravity - Urine 1.015 (1.005-1.025)
[2024-11-15 12:21] LABS: Alanine Aminotransferase 17 U/L (0-31); Albumin Level 4.2 g/dL (3.5-5.0); Alkaline Phosphatase 76 U/L (39-117); Anion Gap 14 (12-20); Aspartate Amino Transferase 33 U/L (5-31); Blood Urea Nitrogen 22 mg/dL (9-16); Calcium 9.1 mg/dL (8.4-10.2); Carbon Dioxide 25 mmol/L (22-29); Chloride 107 mmol/L (96-108); Cholesterol 220 mg/dL (<200); Estimated Glomerular Filt Rate 56; HDL Cholesterol 64 mg/dL (>40); Potassium 4.6 mmol/L (3.3-5.1); Sodium 141 mmol/L (135-145); Total Protein 7.1 g/dL (6.5-8.0); Triglycerides 84 mg/dL (<150)
== END 2024-11-15 11:35 | disposition home or self-care (01) ==
LOC: HO.LNP 11:34
PROVIDERS: Visit Provider Internal Medicine
DX: Z00.00 Encounter for general adult medical examination without abnormal findings (principal); I10 Essential (primary) hypertension; D72.829 Elevated white blood cell count, unspecified; R79.9 Abnormal finding of blood chemistry, unspecified
CPT/HCPCS: 80053; 80061; 81001; 85025